=== PATIENT | female | born 1935 | race Caucasian/White ===

== ENCOUNTER → 2017-02-10 | Outpatient (CLI) | payer MEDICARE ==
--- NOTE | 2017-02-11 11:39 | MM ---
Reason for exam: screening (asymptomatic). Last mammogram was performed 1 year ago. History: Patient is postmenopausal and is nulliparous. Benign excisional biopsy of the left breast, August 21, 1998. Taking estrogen for 31 years. Physical Findings: A clinical breast exam by your physician is recommended on an annual basis and results should be correlated with mammographic findings. MG 3D Screening Mammo W/Cad Bilateral CC and MLO view(s) were taken. Prior study comparison: February 05, 2016, left breast MG 3d work up w/cad LT. February 01, 2016, bilateral MG 3d screening mammo w/cad. The breast tissue is heterogeneously dense. This may lower the sensitivity of mammography. Finding #1: Stable architectural distortion in the anterior position of the left breast consistent with known excisional biopsy. Finding #2: There are typically benign round calcifications in both breasts. There is no discrete abnormality. ASSESSMENT: Benign, BI-RAD 2 RECOMMENDATION: Routine screening mammogram of both breasts in 1 year.
== END | disposition home or self-care (01) ==
LOC: RADMAMWWP 14:25
PROVIDERS: ATTEND Internal Medicine
DX: Z12.31 Encounter for screening mammogram for malignant neoplasm of breast (principal)
CPT/HCPCS: 77063; G0202

== ENCOUNTER → 2017-03-25 | Outpatient (CLI) | payer MEDICARE ==
--- NOTE | 2017-03-25 16:07 | CT ---
EXAMINATION TYPE: CT brain wo con DATE OF EXAM: 03/25/2017 HISTORY: Episode of visual disturbance in December 2015. History of TIAs. CT DLP: 989.50 mGycm. Automated Exposure Control for Dose Reduction was Utilized. TECHNIQUE: CT scan of the head is performed without contrast. COMPARISON: CT brain May 04, 2014. FINDINGS: There is no acute intracranial hemorrhage or midline shift identified. There is diffuse v entricular and sulcal prominence consistent with diffuse age-related cerebral atrophy. There is low- attenuation in the periventricular white matter consistent with chronic small vessel ischemic change. The globes are intact and the visualized sinuses are clear. Hyperostosis frontalis is present. IMPRESSION: No acute intracranial hemorrhage or midline shift. There is mild diffuse age-related ce rebral atrophy and chronic small vessel ischemic change noted. No significant change from prior.
--- NOTE | 2017-03-25 17:00 | ECHOF ---
Referral Reason:G45.8 Transient cerebral ischemic attack MEASUREMENTS -------- HEIGHT: 162.6 cm WEIGHT: 71.7 kg BP: IVSd: 1.1 cm (0.6 - 1.1) LVIDd: 3.6 cm (3.9 - 5.3) LVPWd: 1.1 cm (0.6 - 1.1) IVSs: 1.2 cm LVIDs: 3.0 cm LVPWs: 1.2 cm LAESV Index (A-L): 26.85 ml/m Ao Diam: 2.7 cm (2.0 - 3.7) AV Cusp: 1.6 cm (1.5 - 2.6) LA Diam: 3.7 cm (2.7 - 3.8) EPSS: 0.3 cm MV E Can: 0.68 m/s MV DecT: 312 ms MV A Can: 0.62 m/s MV E/A Ratio: 1.10 AR PHT: 573 ms RAP: 5.00 mmHg RVSP: 23.78 mmHg MV EF SLOPE: 74.23 mm/s (70 - 150) MV EXCURSION: 1.92 cm (> 18.000) FINDINGS -------- Sinus rhythm. This was a technically adequate study. The left ventricular size is normal. There is mild concentric left ventricular hypertrophy. Overa ll left ventricular systolic function is normal with, an EF between 55 - 60 %. The right ventricle is normal in size and function. Normal LA size by volume 22+/-6 ml/m2. The right atrium is normal in size. There is mild aortic valve sclerosis. There is kaie-uq-dfthibvk aortic regurgitation. There is no evidence of aortic stenosis. The mitral valve leaflets are mildly thickened. There is trace to mild mitral regurgitation. Trace tricuspid regurgitation present. Right ventricular systolic pressure is normal at < 35 mmHg. There is no evidence of pulmonary hypertension. The pulmonic valve was not well visualized. The aortic root size is normal. Normal inferior vena cava with normal inspiratory collapse consistent with estimated right atrial pre ssure of 5 mmHg. The pericardium is normal. There is no pericardial effusion. CONCLUSIONS -------- 1. Sinus rhythm. 2. This was a technically adequate study. 3. The left ventricular size is normal. 4. There is mild concentric left ventricular hypertrophy. 5. Overall left ventricular systolic function is normal with, an EF between 55 - 60 %. 6. Normal LA size by volume 22+/-6 ml/m2. 7. There is mild aortic valve sclerosis. 8. There is wlve-xw-ksfumiyp aortic regurgitation. 9. The mitral valve leaflets are mildly thickened. 10. There is trace to mild mitral regurgitation. 11. Trace tricuspid regurgitation present. 12. Right ventricular systolic pressure is normal at < 35 mmHg. 13. There is no evidence of pulmonary hypertension. 14. The pulmonic valve was not well visualized. 15. The aortic root size is normal. 16. There is no pericardial effusion. PLAN COORDINATOR: Mio Avendano RDCS
--- NOTE | 2017-03-25 17:05 | US ---
EXAMINATION TYPE: US carotid duplex BILAT DATE OF EXAM: 03/25/2017 COMPARISON: NONE CLINICAL HISTORY: G45.8 Transient cerebral ischemic attack. EXAM MEASUREMENTS: RIGHT: Peak Systolic Velocity (PSV) cm/sec ----- Right CCA: 58.6 ----- Right ICA: 68.8 ----- Right ECA: 84.1 ICA/CCA ratio: 1.2 RIGHT: End Diastole cm/sec ----- Right CCA: 13.0 ----- Right ICA: 18.2 ----- Right ECA: 0.0 LEFT: Peak Systolic Velocity (PSV) cm/sec ----- Left CCA: 73.5 ----- Left ICA: 63.8 ----- Left ECA: 121.9 ICA/CCA ratio: 0.9 LEFT: End Diastole cm/sec ----- Left CCA: 11.8 ----- Left ICA: 14.0 ----- Left ECA: 0.0 VERTEBRALS (direction of flow): Right Vertebral: Antegrade Left Vertebral: Antegrade Rhythm: Normal Grayscale images show no significant plaque at carotid bulb level bilaterally. Visualized portion of both internal carotid artery shows no significant elevated velocities. IMPRESSION: No hemodynamically significant stenosis is seen in either internal carotid artery.
== END | disposition home or self-care (01) ==
LOC: RADECHMAIN 15:02
PROVIDERS: ATTEND Internal Medicine
DX: G31.1 Senile degeneration of brain, not elsewhere classified (principal); I67.82 Cerebral ischemia; I51.7 Cardiomegaly; I35.8 Other nonrheumatic aortic valve disorders; I35.1 Nonrheumatic aortic (valve) insufficiency
CPT/HCPCS: 70450; 93306; 93880

== ENCOUNTER → 2023-12-10 | Outpatient (CLI) | payer MEDICARE ==
--- NOTE | 2023-12-10 15:34 | CT ---
EXAMINATION TYPE: CT brain wo con DATE OF EXAM: 12/10/2023 COMPARISON: none HISTORY: f/u hematoma CT DLP: 1064.[address] of the brain was performed. The ventricles, basal cisterns and sulci overlying the cerebral convexities demonstrate mild enlargem ent. There is no evidence for intracranial hemorrhage or sulcal effacement. There is decreased attenuation about the periventricular white matter and deep white matter of both c erebral hemispheres, compatible with chronic small vessel ischemia. Differential diagnosis does inclu de demyelination. No mass effects are seen.No midline shift. Osseous calvarium is intact. If symptoms persist consider MRI. IMPRESSION: 1. Age related atrophic and chronic small vessel ischemic change without acute intracranial process s een at this time. No hematoma identified at this time. [facility], , 12/10/2023 3:31 PM
== END | disposition home or self-care (01) ==
LOC: RADCTMAIN 14:46
PROVIDERS: ATTEND Neurological Surgery
DX: S06.5X0A Traumatic subdural hemorrhage without loss of consciousness, initial encounter
CPT/HCPCS: 70450

== ENCOUNTER → 2024-01-13 | Outpatient (CLI) | payer MEDICARE ==
--- NOTE | 2024-01-13 14:55 | BD ---
EXAMINATION TYPE: Axial Bone Density DATE OF EXAM: 01/13/2024 CLINICAL HISTORY: 88 years old Female. ICD-10 CODE: M81.0 AGE RELATED OSTEOPOROSIS , Z78.0 Height: 62.2 Weight: 146 FRAX RISK QUESTIONS: Family History (Parent hip fracture): yes Glucocorticoids (More than 3mos): flonase (Ex: prednisone, prednisolone, methylprednisolone, dexamethasone, and hydrocortisone). History of Fracture in Adulthood: yes Secondary Osteoporosis: yes 1. Type 1 Diabetes: Janumet, no insulin 3. Menopause before 45: yes, total at 44 RISK FACTORS HISTORY OF: hx of lt ankle fx with surgical repair, hx of nose and fx and brain bleed, 2023, lt wrist, 2022, cholesterol, diabetic, early menopause with hyst at 44 yrs old, height loss History of Wrist Fracture: lt wrist, 2022 MEDICATIONS: bp meds, vit d3, cholesterol meds, Janumet, Osteoporosis Medications: yes, fosamax, 10+ yrs EXAM MEASUREMENTS: Bone mineral densitometry was performed using the [employer] System. Bone mineral density as measured about the Lumbar spine is: ----- L1-L4(G/cm2): 1.455 T Score Values are as follows: ----- L1: 1.0 ----- L2: 2.4 ----- L3: 3.0 ----- L4: 2.5 ----- L1-L4: 2.3 Z Score Values are as follows: ----- L1: 2.9 ----- L2: 4.3 ----- L3: 5.0 ----- L4: 4.4 ----- L1-L4: 4.2 Bone mineral density is her first bone density study at [facility]. Bone mineral density about the R hip (g/cm2): 0.685 Bone mineral density about the L hip (g/cm2): 0.813 T Score values are as follows: -----R Neck: -2.4 -----L Neck: -1.0 -----R Total: -2.6 -----L Total: -1.5 Z Score values are as follows: -----R Neck: 0.1 -----L Neck: 1.4 -----R Total: -0.2 -----L Total: 0.8 Bone mineral density is her first at [facility]. FRAX%s: The graph provided illustrates a 42.0% chance for a major osteoporotic fx and a 29.3% chance for the hips probability for fx in 10 years time. IMPRESSION: Osteoporosis (T Score less than -2.5). There is increased fracture risk and therapy is usually indicated based on age. Re-Screen 1-2 years. NOTE: T-SCORE=SD OF THE YOUNG ADULT MEAN. [facility], , 01/13/2024 2:53 PM
--- NOTE | 2024-01-14 12:16 | MM ---
Reason for Exam: Screening (asymptomatic). Last screening mammogram was performed 12 month(s) ago. Patient History: Menarche at age 16. Patient has no children. Left ovary removed at age 44. Right ovary removed at age 44. Hysterectomy at age 44. Postmenopausal. Patient used Estrogen for 31 years. 08/21/1998, Benign Excisional Biopsy on the left side. Prior Study Comparison: 02/01/2016 Bilateral Screening Mammogram, [facility]. 02/05/2016 Left Diagnostic Mammogram, [facility]. 02/10/2017 Bilateral Screening Mammogram, [facility]. 12/15/2022 Bilateral Screening Mammogram, [facility]. Tissue Density: The breasts are heterogeneously dense, which may obscure small masses. Findings: Analyzed By CAD. Right breast: There is no suspicious group of microcalcifications or new suspicious mass. Left breast: Stable architectural distortion in the left breast anterior depth slightly upper outer aspect There is no suspicious group of microcalcifications or new suspicious mass. Overall Assessment: Benign, BI-RAD 2 Management: Screening Mammogram of both breasts in [address] [facility] will attempt to contact patient to return for supplemental views and ultrasound if indicated. Patient should continue monthly self-breast exams. A clinical breast exam by your physician is recommended on an annual basis. This exam should not preclude additional follow-up of suspicious palpable abnormalities. Note on Oxana scores and lifetime risk: 1. A Oxana score greater than 3% is considered moderate risk. If this is the case, consider specialist referral to assess eligibility for a risk reducing agent. 2. If overall lifetime risk for the development of breast cancer is 20% or higher, the patient may qualify for future screening with alternating mammogram and breast MRI. [facility], , 01/14/2024 12:13 PM. Electronically signed and approved by: Jakob Riley DO
== END | disposition home or self-care (01) ==
LOC: RADMAMWWP 11:47
PROVIDERS: ATTEND Internal Medicine Geriatric Medicine
DX: Z12.31 Encounter for screening mammogram for malignant neoplasm of breast (principal); M81.0 Age-related osteoporosis without current pathological fracture; E10.9 Type 1 diabetes mellitus without complications; Z78.0 Asymptomatic menopausal state; Z90.722 Acquired absence of ovaries, bilateral; Z86.73 Personal history of transient ischemic attack (TIA), and cerebral infarction without residual deficits
CPT/HCPCS: 77063; 77067; 77080

== ENCOUNTER 2024-03-22 18:27 | Emergency (ER) | payer MEDICARE ==
[2024-03-22 18:38] VITALS: RESP 18; TEMP 98.5
--- NOTE | 2024-03-22 19:22 | CT ---
EXAMINATION TYPE: CT brain leoraine wo con DATE OF EXAM: 03/22/2024 6:58 PM COMPARISON: None. CLINICAL INDICATION: Female, 89 years old with history of Trauma, fall, on thinners, large constusion above right eye. TECHNIQUE: CT of the brain is performed utilizing 3 mm thick sections through the posterior fossa and 3 mm thick sections through the remaining calvarium. Study is performed within 24 hours of arrival to the hospital. Contrast used: mL of , (none if empty) CT DLP: 1409.5 mGycm, Automated exposure control for dose reduction was used. FINDINGS: No abnormal hyperdensity is present to suggest an acute intracranial hemorrhage. No mass lesion is evident. No acute infarcts are evident. Ventricles and sulci are appropriate for the patient age. Hyperostosis frontalis internus, normal variant, is present. Soft tissue swelling over the right frontal region. No underlying fracture is evident Paranasal sinuses and mastoid air cells within the iivat-yk-mrpe are clear. IMPRESSIONS: 1. No acute intracranial process. Follow-up MRI can be performed as clinically indicated. 2. Right frontal superficial soft tissue swelling. CT cervical spine. COMPARISON: None TECHNIQUE: CT of the cervical spine is performed in the axial plane at 2 mm thick sections. Reconstr ucted images in the coronal, and sagittal plane are reviewed on the computer. FINDINGS: No acute fractures are evident. Vertebral body alignment is normal. Disc heights are preserved. Vertebral body heights are preserved. No spinal canal stenosis is evident. No neural foraminal stenosis is evident. There is some hypodensity with ill-defined margins in the left lobe thyroid. Consider follow-up with ultrasound when the patient is stable. IMPRESSION: 1. No acute osseous abnormality cervical spine. 2. Hypodensity within the left lobe thyroid. Follow-up ultrasound recommended. [facility], Workstation: [facility], 03/22/2024 7:19 PM
--- NOTE | 2024-03-22 20:07 | ED ---
General Adult HPI - General Chief complaint: Fall Stated complaint: fall Time Seen by Provider: 03/22/24 18:35 Source: patient, EMS, RN notes reviewed, old records reviewed Mode of arrival: EMS - History of Present Illness Initial comments: This is an 89-year-old female fell and hit the front of her head. Patient is on Plavix. Patient did not lose conscious. Patient denies neck pain. Patient denies numbness weakness. Patient is complaining of a headache however. Also complains of left knee pain. Patient has full range of motion of left knee she states that she can stand on her. - Related Data Home Medications Medication Instructions Recorded Confirmed Aspirin 4 tab PO DAILY 05/04/14 05/04/14 Brimonidine Tartrate [Alphagan P 1 drop BOTH EYES BID 05/04/14 05/04/14 0.15% Ophth Soln] Estrogens, Conjugated [Premarin] 0.625 mg 05/04/14 05/04/14 LORazepam [Ativan] 0.5 mg PO HS 05/04/14 05/04/14 Metoprolol Succinate (ER) [Toprol 25 mg PO DAILY 05/04/14 05/04/14 XL] Omeprazole [PriLOSEC] 20 mg PO DAILY 05/04/14 05/04/14 sitaGLIPtin PHOSPHATE [Januvia] 100 mg PO DAILY 05/04/14 05/04/14 Allergies Allergy/AdvReac Type Severity Reaction Status Date / Time amoxicillin AdvReac Rash/Hives Verified 05/04/14 12:22 cefuroxime AdvReac Rash/Hives Verified 03/22/24 18:42 cephalexin monohydrate AdvReac Swelling Verified 05/04/14 12:22 [From Keflex] ciprofloxacin [From Cipro] AdvReac Unknown Verified 05/04/14 12:22 ciprofloxacin HCl AdvReac Unknown Verified 05/04/14 12:22 [From Cipro] clindamycin HCl AdvReac Diarrhea Verified 05/04/14 12:22 [From Cleocin] clindamycin palmitate HCl AdvReac Diarrhea Verified 05/04/14 12:22 [From Cleocin] clindamycin phosphate AdvReac Diarrhea Verified 05/04/14 12:22 [From Cleocin] clotrimazole AdvReac Itching Verified 03/22/24 18:42 doxycycline AdvReac Itching Verified 03/22/24 18:42 levofloxacin [From Levaquin] AdvReac Unknown Verified 05/04/14 12:22 meloxicam [From Mobic] AdvReac Nausea Verified 03/22/24 18:42 methylprednisolone AdvReac Unknown Verified 03/22/24 18:42 [From Medrol] metronidazole AdvReac Nausea Verified 03/22/24 18:42 sulfamethoxazole AdvReac Nausea Verified 05/04/14 12:22 [From Bactrim] trimethoprim [From Bactrim] AdvReac Nausea Verified 05/04/14 12:22 Review of Systems ROS Statement: Those systems with pertinent positive or pertinent negative responses have been documented in the HPI. ROS Other: All systems not noted in ROS Statement are negative. Past Medical History Past Medical History: Diabetes Mellitus, Hypertension Additional Past Medical History / Comment(s): GERD, TIA. Glaucoma, brain bleed History of Any Multi-Drug Resistant Organisms: None Reported Past Surgical History: Appendectomy, Cholecystectomy, Hysterectomy, Orthopedic Surgery Additional Past Surgical History / Comment(s): Breast lumpectomy(left), Glaucoma, Cystoscope Past Psychological History: Anxiety, Depression Smoking Status: Never smoker Past Alcohol Use History: Daily, Occasional Past Drug Use History: None Reported General Exam - General Exam Comments Initial Comments: GENERAL: Patient is well-developed and well-nourished. Patient is nontoxic and well- hydrated and is in mild distress. Normal on the forehead slight abrasion to her bridge of her nose no tenderness ENT: Neck is soft and supple. No significant lymphadenopathy is noted. Oropharynx is clear. Moist mucous membranes. Neck has full range of motion without eliciting any pain. EYES: The sclera were anicteric and conjunctiva were pink and moist. Extraocular movements were intact and pupils were equal round and reactive to light. Eyelids were unremarkable. PULMONARY: Unlabored respirations. Good breath sounds bilaterally. No audible rales rhonchi or wheezing was noted. CARDIOVASCULAR: There is a regular rate and rhythm without any murmurs gallops or rubs. ABDOMEN: Soft and nontender with normal bowel sounds. SKIN: Skin is clear with no lesions or rashes and otherwise unremarkable. NEUROLOGIC: Patient is alert and oriented x3. Cranial nerves II through XII are grossly intact. Motor and sensory are also intact. Normal speech, volume and content. Symmetrical smile. MUSCULOSKELETAL: Normal extremities with adequate strength and full range of motion. Patient has a contusion to the left knee patient has full range of motion of that knee LYMPHATICS: No significant lymphadenopathy is noted PSYCHIATRIC: Normal psychiatric evaluation. Course Vital Signs 03/22/24 18:30 Temperature 98.5 F Pulse Rate 87 Respiratory 18 Rate Blood Pressure 158/87 O2 Sat by Pulse 97 Oximetry Medical Decision Making - Medical Decision Making Was pt. sent in by a medical professional or institution ([facility]OUIE Orosco, [facility], urgent care, hospital, or senior living...) When possible be specific @ -No Did you speak to anyone other than the patient for history (EMS, parent, family, police, friend...)? What history was obtained from this source @ -No Did you review nursing and triage notes (agree or disagree)? Why? @ -I reviewed and agree with nursing and triage notes Were old charts reviewed (outside hosp., previous admission, EMS record, old EKG, old radiological studies, urgent care reports/EKG's, senior living records)? Report findings @ -No old charts were reviewed Differential Diagnosis? @ -Intracranial hemorrhage, cervical spine fracture, fractured fibula fracture tibia this is not all-inclusive EKG interpreted by me (3pts min.). @ -As above X-rays interpreted by me (1pt min.). @ -X-ray of the knee shows no acute abnormality CT interpreted by me (1pt min.). @ -CT of the brain and C-spine showed no acute abnormality U/S interpreted by me (1pt. min.). @ -None done What testing was considered but not performed or refused? (CT, X-rays, U/S, labs)? Why? @ -None What meds were considered but not given or refused? Why? @ -None Did you discuss the management of the patient with other professionals (professionals i.e. LOUIE Orosco, [facility], lab, RT, psych nurse, social media community manager, brim greaser operator, teacher, veterinary medical officer, pillowcase folder)? Give summary @ -No Was smoking cessation discussed for >3mins.? @ -No Was critical care preformed (if so, how long)? @ -No Were there social determinants of health that impacted care today? How? (Homelessness, low income, unemployed, alcoholism, drug addiction, transportation, low edu. Level, literacy, decrease access to med. care, custodial, rehab)? @ -No Was there de-escalation of care discussed even if they declined (Discuss DNR or withdrawal of care, Hospice)? DNR status @ -No What co-morbidities impacted this encounter? (DM, HTN, Smoking, COPD, CAD, Cancer, CVA, ARF, Chemo, Hep., AIDS, mental health diagnosis, sleep apnea, morbid obesity)? @ -None Was patient admitted / discharged? Hospital course, mention meds given and route, prescriptions, significant lab abnormalities, going to OR and other pertinent info. @ -X-rays and CAT scans were normal. Patient will be discharged home. Patient will be told return if there are any new or worsening symptoms Undiagnosed new problem with uncertain prognosis? @ -No Drug Therapy requiring intensive monitoring for toxicity (Heparin, Nitro, Insulin, Cardizem)? @ -No Were any procedures done? @ -No Diagnosis/symptom? @ -Head injury Acute, or Chronic, or Acute on Chronic? @ -Acute Uncomplicated (without systemic symptoms) or Complicated (systemic symptoms)? @ -Acute complicated Side effects of treatment? @ -No Exacerbation, Progression, or Severe Exacerbation? @ -No Poses a threat to life or bodily function? How? (Chest pain, [place], NV, pneumonia, PE, COPD, DKA, ARF, appy, cholecystitis, CVA, Diverticulitis, Homicidal, Suicidal, threat to staff... and all critical care pts) @ -No Diagnosis/symptom? @ -Contusion knee Acute, or Chronic, or Acute on Chronic? @ -Acute Uncomplicated (without systemic symptoms) or Complicated (systemic symptoms)? @ -Uncomplicated Side effects of treatment? @ -None Exacerbation, Progression, or Severe Exacerbation] @ -No Poses a threat to life or bodily function? @ -No Disposition Clinical Impression: Fall, Head injury Disposition: HOME SELF-CARE Condition: Good Instructions (If sedation given, give patient instructions): Fall Prevention for Older Adults (ED), Head Injury (ED) Is patient prescribed a controlled substance at d/c from ED?: No Referrals: Maninder Rivas MD [Primary Care Provider] - 1-2 days Time of Disposition: 20:33
--- NOTE | 2024-03-22 21:06 | XR ---
EXAMINATION TYPE: XR knee complete LT DATE OF EXAM: 03/22/2024 8:11 PM COMPARISON: None. CLINICAL INDICATION: Female, 89 years old with history of Fall, pain TECHNIQUE: 3 view(s) obtained. FINDINGS: There is loss of joint space in the lateral compartment left knee. Calcification is within the medial meniscus. Patellofemoral degenerative changes are present. No joint effusion is evident. IMPRESSION: 1. Moderately advanced degenerative changes greater in the lateral compartment patellofemoral. [facility], Workstation: [facility], 03/22/2024 9:04 PM
[2024-03-22 21:11] VITALS: BP 138/74; PULSE 63
== END 2024-03-22 21:11 | disposition home or self-care (01) ==
LOC: EC 18:27
DX: S09.90XA Unspecified injury of head, initial encounter (principal); S80.02XA Contusion of left knee, initial encounter; W18.30XA Fall on same level, unspecified, initial encounter; Z88.0 Allergy status to penicillin; Z88.1 Allergy status to other antibiotic agents; Z88.2 Allergy status to sulfonamides; Z88.8 Allergy status to other drugs, medicaments and biological substances
CPT/HCPCS: 70450; 72125; 99284

== ENCOUNTER 2024-03-23 19:57 | Inpatient (IN) | payer MEDICARE ==
--- NOTE | 2024-03-23 20:09 | ED ---
Fall HPI - General Chief Complaint: Fall Stated Complaint: Fall Time Seen by Provider: 03/23/24 19:59 Source: patient, EMS, RN notes reviewed Mode of arrival: EMS Limitations: physical limitation - History of Present Illness Initial Comments: 89-year-old female presents emergency room with complaint of a fall. Patient states she was going down her steps using the railing when her finger caught on a screw she states that she pulled away and this caused her to fall. Patient fell onto her right knee complains of pain, swelling unable to ambulate patient was seen here yesterday after a fall also had CT of her brain, neck without any acute intracranial hemorrhage. Patient states that she only has a knee injury from today. Patient states has been icing it throughout the day with no improvement of her symptoms. - Related Data Home Medications Medication Instructions Recorded Confirmed Aspirin 4 tab PO DAILY 05/04/14 05/04/14 Brimonidine Tartrate [Alphagan P 1 drop BOTH EYES BID 05/04/14 05/04/14 0.15% Ophth Soln] Estrogens, Conjugated [Premarin] 0.625 mg 05/04/14 05/04/14 LORazepam [Ativan] 0.5 mg PO HS 05/04/14 05/04/14 Metoprolol Succinate (ER) [Toprol 25 mg PO DAILY 05/04/14 05/04/14 XL] Omeprazole [PriLOSEC] 20 mg PO DAILY 05/04/14 05/04/14 sitaGLIPtin PHOSPHATE [Januvia] 100 mg PO DAILY 05/04/14 05/04/14 Allergies Allergy/AdvReac Type Severity Reaction Status Date / Time amoxicillin AdvReac Rash/Hives Verified 03/23/24 20:04 cefuroxime AdvReac Rash/Hives Verified 03/23/24 20:04 cephalexin monohydrate AdvReac Swelling Verified 03/23/24 20:04 [From Keflex] ciprofloxacin [From Cipro] AdvReac Unknown Verified 03/23/24 20:04 ciprofloxacin HCl AdvReac Unknown Verified 03/23/24 20:04 [From Cipro] clindamycin HCl AdvReac Diarrhea Verified 03/23/24 20:04 [From Cleocin] clindamycin palmitate HCl AdvReac Diarrhea Verified 03/23/24 20:04 [From Cleocin] clindamycin phosphate AdvReac Diarrhea Verified 03/23/24 20:04 [From Cleocin] clotrimazole AdvReac Itching Verified 03/23/24 20:04 doxycycline AdvReac Itching Verified 03/23/24 20:04 levofloxacin [From Levaquin] AdvReac Unknown Verified 03/23/24 20:04 meloxicam [From Mobic] AdvReac Nausea Verified 03/23/24 20:04 methylprednisolone AdvReac Unknown Verified 03/23/24 20:04 [From Medrol] metronidazole AdvReac Nausea Verified 03/23/24 20:04 sulfamethoxazole AdvReac Nausea Verified 03/23/24 20:04 [From Bactrim] trimethoprim [From Bactrim] AdvReac Nausea Verified 03/23/24 20:04 Review of Systems ROS Statement: Those systems with pertinent positive or pertinent negative responses have been documented in the HPI. ROS Other: All systems not noted in ROS Statement are negative. Past Medical History Past Medical History: Diabetes Mellitus, Hypertension Additional Past Medical History / Comment(s): GERD, TIA. Glaucoma, brain bleed History of Any Multi-Drug Resistant Organisms: None Reported Past Surgical History: Appendectomy, Cholecystectomy, Hysterectomy, Orthopedic Surgery Additional Past Surgical History / Comment(s): Breast lumpectomy(left), Glaucoma, Cystoscope Past Psychological History: Anxiety, Depression Smoking Status: Never smoker Past Alcohol Use History: Daily, Occasional Past Drug Use History: None Reported General Exam Limitations: no limitations General appearance: alert, in no apparent distress Head exam: Present: atraumatic, normocephalic. Absent: normal inspection (Faci al ecchymosis noted) Eye exam: Present: normal appearance, PERRL, EOMI, periorbital swelling, periorbital tenderness (Right). Absent: scleral icterus, conjunctival injection ENT exam: Present: normal exam, normal oropharynx, mucous membranes moist Neck exam: Present: normal inspection, full ROM. Absent: tenderness, mening ismus, lymphadenopathy Respiratory exam: Present: normal lung sounds bilaterally. Absent: respiratory distress, wheezes, rales, rhonchi, stridor Cardiovascular Exam: Present: regular rate, normal rhythm, normal heart sounds. Absent: systolic murmur, diastolic murmur, rubs, gallop, clicks Extremities exam: Present: other (Right knee there is diffuse ecchymosis, swelling noted there is diffuse tenderness neurovascular intact pain with range of motion limited range of motion) Neurological exam: Present: alert, oriented X3 Course Vital Signs 03/23/24 19:58 Temperature 97.8 F Pulse Rate 86 Respiratory 18 Rate Blood Pressure 139/63 O2 Sat by Pulse 97 Oximetry Disposition Clinical Impression: Multiple falls, Unable to ambulate, Weakness Disposition: ADMITTED IP TO THIS HOSP Condition: Fair Referrals: Maninder Rivas MD [Primary Care Provider] - 1-2 days Time of Disposition: 21:14
--- NOTE | 2024-03-23 20:31 | XR ---
EXAMINATION TYPE: XR knee complete RT DATE OF EXAM: 03/23/2024 8:25 PM COMPARISON: None. CLINICAL INDICATION: Female, 89 years old with history of fall, pain, pain TECHNIQUE: Three views of the right knee are obtained. FINDINGS: There is no acute fracture/dislocation evident in right knee. Osseous structures are demin eralized. Moderate to severe tricompartment degenerative change and spurring is seen. Meniscal calcif ications are present raising concern for underlying chondrocalcinosis. Suspect moderate to large-size d suprapatellar joint effusion. IMPRESSION: There is no acute fracture or dislocation in the right knee. [facility], , 03/23/2024 8:28 PM
--- NOTE | 2024-03-23 21:05 | CT ---
EXAMINATION TYPE: CT knee RT wo con DATE OF EXAM: 03/23/2024 COMPARISON: Same day right knee x-ray. CLINICAL INDICATION: Female, 89 years old with history of trauma, unable to ambulate; PHH, Fall, pain in right knee. CT DLP: 101.4 mGycm Automated exposure control for dose reduction was used. FINDINGS: No acute displaced fracture in the right knee. Moderate to severe tricompartment joint space loss and spurring is redemonstrated. Meniscal calcifications consistent with underlying chondrocalcinosis is redemonstrated. There is confirmation of large size suprapatellar joint effusion. There is thickening of the patellar tendon with curvilinear calcification along the deep inferior aspect. There is moder ate to severe superficial infrapatellar subcutaneous edema. There is moderate size popliteal cyst sag ittal image 26. Subcutaneous edema in Hoffa's fat pad raises concern for impingement syndrome, correl ate clinically. IMPRESSION: NO ACUTE FRACTURE OR DISLOCATION IN THE RIGHT KNEE. [facility], , 03/23/2024 9:02 PM
[2024-03-23] MEDS ORDERED: NALOXONE 0.4 MG/ML 1 ML VIAL IV PRN (21:14)
[2024-03-23 21:52] LABS: Basophils % (A) 0 %; Eosinophils # (A) 0.1 k/uL (0-0.7); Eosinophils % (A) 1 %; HCT 39.5 % (34.0-46.0); Lymphocytes # (A) 0.8 k/uL (1.0-4.8); Lymphocytes % (A) 6 %; MCH 29.3 pg (25.0-35.0); MCHC 33.1 g/dL (31.0-37.0); MCV 88.8 fL (80.0-100.0); Mean Platelet Volume 8.1; Monocytes # (A) 0.7 k/uL (0-1.0); Monocytes % (A) 5 %; Neutrophils # (A) 12.2 k/uL (1.3-7.7); Neutrophils % (A) 88 %; Platelet Count 210 k/uL (150-450); RBC 4.45 m/uL (3.80-5.40); RDW 13.4 % (11.5-15.5); WBC 13.9 k/uL (3.8-10.6)
[2024-03-23 22:01] LABS: ALT 24 U/L (4-34); AST 37 U/L (14-36); African American GFR (CKD) 63 (>60 ml/min/1.73 sqM); Albumin 4.4 g/dL (3.5-5.0); Alkaline Phosphatase 49 U/L (38-126); Anion Gap 10 mmol/L; Blood Urea Nitrogen 20 mg/dL (7-17); Carbon Dioxide 25 mmol/L (22-30); Chloride 100 mmol/L (98-107); Glucose 114 mg/dL (74-99); Magnesium 1.7 mg/dL (1.6-2.3); Non-African American GFR(CKD) 55 (>60 ml/min/1.73 sqM); Potassium 4.4 mmol/L (3.5-5.1); Sodium 135 mmol/L (137-145); Total Bilirubin 0.8 mg/dL (0.2-1.3); Total Protein 7.1 g/dL (6.3-8.2)
[2024-03-23 23:06] LABS: Glucose,Whole Blood 131 mg/dL (70-110)
[2024-03-24] MEDS: ACETAMINOPHEN TAB 325 MG TAB PO PRN (00:18)
[2024-03-24] MEDS: HYDROcodone/APAP 5-325MG 1 EACH TAB PO PRN (04:14)
[2024-03-24 06:01] LABS: Basophils % (A) 0 %; Eosinophils # (A) 0.2 k/uL (0-0.7); Eosinophils % (A) 2 %; HCT 36.3 % (34.0-46.0); HGB 11.7 gm/dL (11.4-16.0); Lymphocytes # (A) 0.8 k/uL (1.0-4.8); Lymphocytes % (A) 8 %; MCH 29.2 pg (25.0-35.0); MCHC 32.3 g/dL (31.0-37.0); MCV 90.3 fL (80.0-100.0); Mean Platelet Volume 8.3; Monocytes # (A) 0.6 k/uL (0-1.0); Monocytes % (A) 6 %; Neutrophils # (A) 7.7 k/uL (1.3-7.7); Neutrophils % (A) 82 %; Platelet Count 164 k/uL (150-450); RBC 4.02 m/uL (3.80-5.40); RDW 13.4 % (11.5-15.5); WBC 9.4 k/uL (3.8-10.6)
[2024-03-24 06:21] LABS: African American GFR (CKD) 61 (>60 ml/min/1.73 sqM); Anion Gap 8 mmol/L; Blood Urea Nitrogen 25 mg/dL (7-17); Calcium 9.5 mg/dL (8.4-10.2); Carbon Dioxide 25 mmol/L (22-30); Chloride 103 mmol/L (98-107); Glucose 119 mg/dL (74-99); Non-African American GFR(CKD) 53 (>60 ml/min/1.73 sqM); Potassium 4.3 mmol/L (3.5-5.1); Sodium 136 mmol/L (137-145)
[2024-03-24] MEDS ORDERED: DEXTROSE 50% SYRINGE 50 ML IVP PRN ×2 (06:28)
[2024-03-24 06:29] LABS: Glucose,Whole Blood 127 mg/dL (70-110)
[2024-03-24] MEDS: INSULIN ASPART (NovoLOG) 100 UNIT/ML VIAL SQ SCH (07:32)
[2024-03-24] MEDS: METOPROLOL SUCCINATE (ER) 25 MG TAB.ER.24H PO SCH (11:15)
[2024-03-24] MEDS: CHOLECALCIFEROL 25 MCG (1000 IU) TABLET PO SCH (11:15)
[2024-03-24] MEDS: PANTOPRAZOLE 40 MG TABLET PO SCH (11:16)
[2024-03-24] MEDS: CITALOPRAM HYDROBROMIDE 20 MG TAB PO SCH (11:16)
[2024-03-24] MEDS: metFORMIN 500 MG TAB PO SCH (11:16)
[2024-03-24] MEDS: LINAGLIPTIN 5 MG TABLET PO SCH (11:16)
[2024-03-24] MEDS: ATORVASTATIN 20 MG TAB PO SCH (11:16)
[2024-03-24 11:26] LABS: Glucose,Whole Blood 139 mg/dL (70-110)
--- NOTE | 2024-03-24 13:09 | P.HPIM ---
History of Present Illness H&P Date: 03/24/24 This is an 89-year-old female with medical history significant for diabetes mellitus, hypertension, acid reflux, TIA with no residuals back in 2013. Patient also had a brain bleed in 2023 secondary to a fall where she hit her head. Patient is maintained on Plavix daily. She comes into the hospital she had a fall on Thursday where she was walking up steps misstepped fell hit her head into the wall she came to the ER to be evaluated she had a had cervical spine CT that showed no acute intracranial process but she did have some right frontal superficial soft tissue swelling and there is some obvious bruising noted on her forehead and she has bilateral black eyes. Patient was discharged home from the ER however she comes back with a second fall on Thursday where she fell going down steps and landed on her knees. Since then she has had significant pain in her right knee with some obvious soft tissue swelling. Knee x-ray reveals no acute fracture or dislocation of the right knee however there is moderate to severe tricompartment degenerative change and spurring is seen. Patient had a follow-up CT of the right knee which again confirms a large sized suprapatellar joint effusion and patient is at this time unable to bear weight secondary to the pain. Orthopedics was consulted for further evaluation and possible aspiration we did hold her Plavix today. Will work reveals a white b lood cell count of 13.9, sodium 135, BUN of 20 creatinine 0.94 AST of 37. Hemodynamically she is stable. REVIEW OF SYSTEMS: CONSTITUTIONAL: No fever, no malaise, no fatigue. HEENT: No recent visual problems or hearing problems. Denied any sore throat. CARDIOVASCULAR: No chest pain, orthopnea, PND, no palpitations, no syncope. PULMONARY: No shortness of breath, no cough, no hemoptysis. GASTROINTESTINAL: No diarrhea, no nausea, no vomiting, no abdominal pain. NEUROLOGICAL: No headaches, no weakness, no numbness. HEMATOLOGICAL: Denies any bleeding or petechiae. GENITOURINARY: Denies any burning micturition, frequency, or urgency. MUSCULOSKELETAL/RHEUMATOLOGICAL: Denies any joint pain, swelling, or any muscle pain. ENDOCRINE: Denies any polyuria or polydipsia. The rest of the 14-point review of systems is negative. PHYSICAL EXAMINATION: GENERAL: The patient is alert and oriented x3, not in any acute distress. Well developed, well nourished. HEENT: Pupils are round and equally reacting to light. EOMI. No scleral icterus. No conjunctival pallor. Normocephalic, atraumatic. No pharyngeal erythema. No thyromegaly. CARDIOVASCULAR: S1 and S2 present. No murmurs, rubs, or gallops. PULMONARY: Chest is clear to auscultation, no wheezing or crackles. ABDOMEN: Soft, nontender, nondistended, normoactive bowel sounds. No palpable organomegaly. MUSCULOSKELETAL: No joint swelling or deformity. EXTREMITIES: No cyanosis, clubbing, or pedal edema. NEUROLOGICAL: Gross neurological examination did not reveal any focal deficits. SKIN: No rashes. Patient has soft tissue swelling over the right forehead and bilateral black eyes, Bruising to the left great toe Assessment and Plan Traumatic fall with soft tissue head trauma on the right forehead Right knee pain with large joint effusion post fall Bruising and pain to the left great toe post fall Diabetes Mellitus type 2 Hypertension currently normotensive holding lisinopril Gastroesophageal reflux disease TIA in 2013 with no residual Hx of brain bleed in 2023 post fall Anxiety/Depression GI Prophylaxis DVT prophylaxis No Code Plan Pending orthopedic evaluation Pending xray of the left foot and great toe Pending PT/OT evaluation Hold lisinopril Hold plavix for now pending Orthopedic recommendations Resume all other appropriate home medications Continue accuchecks ACHS The impression and plan of care has been dictated by Ernestina Avilez Nurse Practitioner as directed. Dr. Chris MD I have performed a history and physical examination and medical decision making of this patient, discussed the same with the dictator, and agree with the dictators assessment and plan as written, documented as a scribe. Based on total visit time, I have performed more than 50% of this visit. Past Medical History Past Medical History: Diabetes Mellitus, Hypertension Additional Past Medical History / Comment(s): GERD, TIA 2013. Brain bleed 2023 History of Any Multi-Drug Resistant Organisms: None Reported Past Surgical History: Appendectomy, Cholecystectomy, Hysterectomy, Orthopedic Surgery Additional Past Surgical History / Comment(s): Breast lumpectomy(left), Cy stoscope, Left ankle pin and plate Past Psychological History: Anxiety, Depression Smoking Status: Never smoker Past Alcohol Use History: Occasional Past Drug Use History: None Reported Medications and Allergies Home Medications Medication Instructions Recorded Confirmed Type Metoprolol Succinate (ER) [Toprol 25 mg PO DAILY 05/04/14 03/24/24 History XL] Omeprazole [PriLOSEC] 20 mg PO DAILY 05/04/14 03/24/24 History Alendronate Sodium [Fosamax] 70 mg PO PERRIN 03/24/24 03/24/24 History Cholecalciferol [Vitamin D3 (25 50 mcg PO DAILY 03/24/24 03/24/24 History Mcg = 1000 Iu)] Citalopram Hydrobromide [CeleXA] 20 mg PO DAILY 03/24/24 03/24/24 History Clopidogrel [Plavix] 75 mg PO DAILY 03/24/24 03/24/24 History Dulaglutide [Trulicity] 0.75 mg SQ PERRIN 03/24/24 03/24/24 History Magnesium Oxide [Mag-Ox] 400 mg PO DAILY 03/24/24 03/24/24 History Rosuvastatin [Crestor] 10 mg PO DAILY 03/24/24 03/24/24 History calcium polycarbophiL [Fibercon] 625 mg PO DAILY 03/24/24 03/24/24 History lisinopriL 2.5 mg PO DAILY 03/24/24 03/24/24 History sitaGLIPtin PHOS/metFORMIN HCL 1 tab PO DAILY 03/24/24 03/24/24 History [Janumet 50-500 mg Tablet] Allergies Allergy/AdvReac Type Severity Reaction Status Date / Time cefuroxime Allergy Rash/Hives Verified 03/24/24 08:34 losartan [From Cozaar] Allergy Itching Verified 03/24/24 08:34 Penicillins Allergy Rash/Hives Verified 03/24/24 08:34 sulfamethoxazole Allergy Rash/Hives Verified 03/24/24 08:34 [From Bactrim] trimethoprim [From Bactrim] Allergy Rash/Hives Verified 03/24/24 08:34 amoxicillin AdvReac Rash/Hives Verified 03/24/24 08:34 cephalexin monohydrate AdvReac Swelling - Verified 03/24/24 08:34 [From Keflex] mouth/lips ciprofloxacin [From Cipro] AdvReac Joint Pain Verified 03/24/24 08:34 ciprofloxacin HCl AdvReac Joint Pain Verified 03/24/24 08:34 [From Cipro] clindamycin HCl AdvReac Diarrhea Verified 03/24/24 08:34 [From Cleocin] clindamycin palmitate HCl AdvReac Diarrhea Verified 03/24/24 08:34 [From Cleocin] clindamycin phosphate AdvReac Diarrhea Verified 03/24/24 08:34 [From Cleocin] clotrimazole AdvReac Itching Verified 03/24/24 08:34 doxycycline AdvReac Itching/Yeast/Gi Verified 03/24/24 08:34 Upset levofloxacin [From Levaquin] AdvReac joint pain Verified 03/24/24 08:34 meloxicam [From Mobic] AdvReac Nausea Verified 03/24/24 08:34 methylprednisolone AdvReac joint pain Verified 03/24/24 08:34 [From Medrol] metronidazole AdvReac Nausea Verified 03/24/24 08:34 Physical Exam Vitals: Vital Signs Temp Pulse Pulse Resp BP BP Pulse Ox 03/24/24 07:05 97.8 F 77 18 125/81 95 03/24/24 02:49 97.6 F 83 17 120/73 98 03/23/24 22:53 97.3 F L 84 18 127/71 94 L 03/23/24 22:23 97.3 F L 87 19 134/69 96 03/23/24 19:58 97.8 F 86 18 139/63 97 Intake and Output 03/23/24 03/24/24 03/24/24 22:59 06:59 14:59 Other: Voiding Method External Catheter # Voids 1 Weight 63.503 kg 63.503 kg Results CBC & Chem 7: 03/24/24 05:47 03/24/24 05:47 Labs: Abnormal Lab Results - Last 24 Hours (Table) 03/23/24 03/23/24 03/23/24 Range/Units 21:35 21:35 23:03 WBC 13.9 H (3.8-10.6) k/uL Neutrophils # 12.2 H (1.3-7.7) k/uL Lymphocytes # 0.8 L (1.0-4.8) k/uL Sodium 135 L (137-145) mmol/L BUN 20 H (7-17) mg/dL Glucose 114 H (74-99) mg/dL POC Glucose (mg/dL) 131 H (70-110) mg/dL AST 37 H (14-36) U/L 03/24/24 03/24/24 03/24/24 Range/Units 05:47 05:47 06:26 WBC (3.8-10.6) k/uL Neutrophils # (1.3-7.7) k/uL Lymphocytes # 0.8 L (1.0-4.8) k/uL Sodium 136 L (137-145) mmol/L BUN 25 H (7-17) mg/dL Glucose 119 H (74-99) mg/dL POC Glucose (mg/dL) 127 H (70-110) mg/dL AST (14-36) U/L Thrombosis Risk Factor Assmnt - Choose All That Apply Other Risk Factors: Yes Each Risk Factor Represents 3 Points: Age 75 years or older Other congenital or acquired thrombophilia - If yes, enter type in comment: No Thrombosis Risk Factor Assessment Total Risk Factor Score: 3 Thrombosis Risk Factor Assessment Level: Moderate Risk Assessment and Plan Time with Patient: Less than 30
--- NOTE | 2024-03-24 14:18 | XR ---
EXAMINATION TYPE: XR foot complete LT DATE OF EXAM: 03/24/2024 2:07 PM COMPARISON: None. CLINICAL INDICATION: Female, 89 years old with history of pain/bruise, pain TECHNIQUE: Frontal, lateral, and oblique images of the left foot are obtained. FINDINGS: Osseous structures are demineralized . Surgical change in level of the medial and lateral m alleolus is present. There is no acute fracture/dislocation evident in the left foot. The joint spac es in the left foot appear within normal limits. There is small to moderate size inferior calcaneal spur. The overlying soft tissue appears unremarkable. IMPRESSION: There is no acute fracture or dislocation in the left foot. [facility], , 03/24/2024 2:16 PM
[2024-03-24 16:33] LABS: Glucose,Whole Blood 123 mg/dL (70-110)
--- NOTE | 2024-03-24 17:50 | P.CNOR ---
History of Present Illness - HPI Consult date: 03/24/24 History of present illness: This is an 89-year-old female who is admitted after multiple falls. Orthopedics is consulted due to right knee pain. Patient states that she has had 2 falls this week. Patient states that her most recent fall caused her to land directly onto the right knee. Patient states that the knee is now swollen and painful she is unable to bear weight. Patient's past medical history is significant for diabetes mellitus, hypertension, acid reflux, TIA and history of brain bleed after a fall. Patient states that she normally takes Plavix. Patient denies any fever/chills, chest pain, shortness breath, abdominal pain, numbness, weakness or tingling. Review of Systems See HPI. Past Medical History Past Medical History: Diabetes Mellitus, Hypertension Additional Past Medical History / Comment(s): GERD, TIA 2013. Brain bleed 2023 History of Any Multi-Drug Resistant Organisms: None Reported Past Surgical History: Appendectomy, Cholecystectomy, Hysterectomy, Orthopedic Surgery Additional Past Surgical History / Comment(s): Breast lumpectomy(left), Cystoscope, Left ankle pin and plate Past Psychological History: Anxiety, Depression Smoking Status: Never smoker Past Alcohol Use History: Occasional Past Drug Use History: None Reported Medications and Allergies Home Medications Medication Instructions Recorded Confirmed Type Metoprolol Succinate (ER) [Toprol 25 mg PO DAILY 05/04/14 03/24/24 History XL] Omeprazole [PriLOSEC] 20 mg PO DAILY 05/04/14 03/24/24 History Alendronate Sodium [Fosamax] 70 mg PO PERRIN 03/24/24 03/24/24 History Cholecalciferol [Vitamin D3 (25 50 mcg PO DAILY 03/24/24 03/24/24 History Mcg = 1000 Iu)] Citalopram Hydrobromide [CeleXA] 20 mg PO DAILY 03/24/24 03/24/24 History Clopidogrel [Plavix] 75 mg PO DAILY 03/24/24 03/24/24 History Dulaglutide [Trulicity] 0.75 mg SQ PERRIN 03/24/24 03/24/24 History Magnesium Oxide [Mag-Ox] 400 mg PO DAILY 03/24/24 03/24/24 History Rosuvastatin [Crestor] 10 mg PO DAILY 03/24/24 03/24/24 History calcium polycarbophiL [Fibercon] 625 mg PO DAILY 03/24/24 03/24/24 History lisinopriL 2.5 mg PO DAILY 03/24/24 03/24/24 History sitaGLIPtin PHOS/metFORMIN HCL 1 tab PO DAILY 03/24/24 03/24/24 History [Janumet 50-500 mg Tablet] Allergies Allergy/AdvReac Type Severity Reaction Status Date / Time cefuroxime Allergy Rash/Hives Verified 03/24/24 08:34 losartan [From Cozaar] Allergy Itching Verified 03/24/24 08:34 Penicillins Allergy Rash/Hives Verified 03/24/24 08:34 sulfamethoxazole Allergy Rash/Hives Verified 03/24/24 08:34 [From Bactrim] trimethoprim [From Bactrim] Allergy Rash/Hives Verified 03/24/24 08:34 amoxicillin AdvReac Rash/Hives Verified 03/24/24 08:34 cephalexin monohydrate AdvReac Swelling - Verified 03/24/24 08:34 [From Keflex] mouth/lips ciprofloxacin [From Cipro] AdvReac Joint Pain Verified 03/24/24 08:34 ciprofloxacin HCl AdvReac Joint Pain Verified 03/24/24 08:34 [From Cipro] clindamycin HCl AdvReac Diarrhea Verified 03/24/24 08:34 [From Cleocin] clindamycin palmitate HCl AdvReac Diarrhea Verified 03/24/24 08:34 [From Cleocin] clindamycin phosphate AdvReac Diarrhea Verified 03/24/24 08:34 [From Cleocin] clotrimazole AdvReac Itching Verified 03/24/24 08:34 doxycycline AdvReac Itching/Yeast/Gi Verified 03/24/24 08:34 Upset levofloxacin [From Levaquin] AdvReac joint pain Verified 03/24/24 08:34 meloxicam [From Mobic] AdvReac Nausea Verified 03/24/24 08:34 methylprednisolone AdvReac joint pain Verified 03/24/24 08:34 [From Medrol] metronidazole AdvReac Nausea Verified 03/24/24 08:34 Physical Examination On exam patient is resting comfortably in bed in no acute distress. Patient is alert and oriented 3. Right lower extremity: There is mild to moderate knee effusion. There is a small abrasion to the anterior aspect of the right knee. There is no erythema. Patient has difficulty and limitation with flexion and extension of the right knee secondary to pain and swelling. Calf is soft and nontender to palpation. Patient has full foot and ankle motion without pain or difficulty. Sensation intact. Neurovascular status and circulatory status are intact. Results An x-ray report of the right knee dated 03/23/2024 shows: There is no acute fracture or dislocation in the right knee. Moderate to severe tricompartment degenerative change and spurring is seen. A CT of the right knee dated 03/23/2024 shows: No acute fracture or dislocation in the right knee. - Labs Labs: Abnormal Lab Results - Last 24 Hours (Table) 03/23/24 03/23/24 03/23/24 Range/Units 21:35 21:35 23:03 WBC 13.9 H (3.8-10.6) k/uL Neutrophils # 12.2 H (1.3-7.7) k/uL Lymphocytes # 0.8 L (1.0-4.8) k/uL Sodium 135 L (137-145) mmol/L BUN 20 H (7-17) mg/dL Glucose 114 H (74-99) mg/dL POC Glucose (mg/dL) 131 H (70-110) mg/dL Hemoglobin A1c (<=6.0) % AST 37 H (14-36) U/L 03/24/24 03/24/24 03/24/24 Range/Units 05:47 05:47 05:47 WBC (3.8-10.6) k/uL Neutrophils # (1.3-7.7) k/uL Lymphocytes # 0.8 L (1.0-4.8) k/uL Sodium 136 L (137-145) mmol/L BUN 25 H (7-17) mg/dL Glucose 119 H (74-99) mg/dL POC Glucose (mg/dL) (70-110) mg/dL Hemoglobin A1c 6.2 H (<=6.0) % AST (14-36) U/L 03/24/24 03/24/24 03/24/24 Range/Units 06:26 11:24 16:30 WBC (3.8-10.6) k/uL Neutrophils # (1.3-7.7) k/uL Lymphocytes # (1.0-4.8) k/uL Sodium (137-145) mmol/L BUN (7-17) mg/dL Glucose (74-99) mg/dL POC Glucose (mg/dL) 127 H 139 H 123 H (70-110) mg/dL Hemoglobin A1c (<=6.0) % AST (14-36) U/L H & H 03/23/24 03/24/24 Range/Units 21:35 05:47 Hgb 13.0 11.7 (11.4-16.0) gm/dL Hct 39.5 36.3 (34.0-46.0) % Result Diagrams: 03/24/24 05:47 03/24/24 05:47 Assessment and Plan (1) Effusion, right knee Current Visit: Yes Status: Acute Code(s): M25.461 - EFFUSION, RIGHT KNEE SNOMED Code(s): 450857796318626 (2) Osteoarthritis of right knee Current Visit: Yes Status: Acute Code(s): M17.11 - UNILATERAL PRIMARY OSTE OARTHRITIS, RIGHT KNEE SNOMED Code(s): 859704072146977 (3) Multiple falls Current Visit: Yes Status: Acute Code(s): R29.6 - REPEATED FALLS SNOMED Code(s): 965979267 (4) Fall Current Visit: No Status: Acute Code(s): W19.XXXA - UNSPECIFIED FALL, INITIAL ENCOUNTER SNOMED Code(s): 4914144 Plan: 1. Imaging is reviewed revealing moderate to severe arthritic changes. Aspiration of the right knee is discussed at bedside today and patient consents to proceed. The right knee is prepped with ChloraPrep and anesthetized with 3 mL of 1% lidocaine using a 23-gauge needle under sterile technique. Then the left knee is aspirated with an 18-gauge needle using sterile technique and 27cc of bloody fluid is obtained. Patient tolerated the procedure well. A compressive Chinmay wrap is applied to the left knee. 2. Patient may be weightbearing as tolerated. Rest and ice the knee as needed for swelling. 3. Recommend physical therapy for mobilization. 4. We will continue to follow. Patient was seen and evaluated independently, agree with the above history, on exam of the right knee the skin is intact she has improvement of her effusion after aspiration. Remains to be tender to palpation mostly to the anterior aspect of the knee she has tenderness along the extensor mechanism, there is some concern for defect along the inferior aspect of the extensor mechanism. Patient at this time is unable to perform a straight leg raise and she is unable to maintain the right knee in extension when passively extended. She continues to exhibit fullness to the posterior aspect of the knee. There is no varus or valgus instability to the knee. Passive ROM of the knee from 0- 100 however pain with terminal flexion. Patient has intact sensation throughout the right lower extremity she is able to plantar and dorsiflex the ankle and has palpable DP pulse and brisk capillary refill to the right foot. Tertiary exam reveals no further orthopedic injuries, however she did sustain notable trauma to her face and resultant echymosis. Given her inability to perform a straight leg raise and difficulty with weightbearing following her fall onto her right knee I do have a concern that she may have an extensor mechanism disruption. CT and plain films are difficult to assessed given the position of her knee not allowing appropriate measurement of patellar position. We will obtain an MRI of the right knee in order to fully evaluate the extensor mechanism. For now I recommend weightbearing as tolerated to the right knee however she should be in a knee immobilizer or knee brace that is locked in extension until we can properly assessed the extensor mechanism. Ice and elevation to the right knee to help with pain and swelling Primitivo Cheng MD
[2024-03-24] MEDS: LIDOCAINE 1% INJ 10MG/ML (20 ML MDV) SQ ONE (18:02)
[2024-03-24] MEDS: LIDOCAINE 2% (PF) 20 MG/ML 10 ML AMP SQ STA (18:08)
[2024-03-24 18:50] LABS: Appearance,BF Bloody; Color,BF Red; Nucleated Cells, Body Fluid 31500 /uL; RBC, Body Fluid 487500 /uL
[2024-03-24 18:53] LABS: Mononuclear WBC,Body Fluid 16 %; Polynuclear WBC,Body Fluid 82 %; Total Cells Counted,Body Fluid 100
[2024-03-24 20:39] LABS: Glucose,Whole Blood 196 mg/dL (70-110)
[2024-03-24] MEDS: IBUPROFEN 400 MG TAB PO PRN (20:59)
[2024-03-25 03:55] LABS: Synovial Fld Crystals None Seen (None Seen)
[2024-03-25 06:22] LABS: Glucose,Whole Blood 129 mg/dL (70-110)
[2024-03-25 11:48] LABS: Glucose,Whole Blood 145 mg/dL (70-110)
[2024-03-25 16:30] LABS: Glucose,Whole Blood 236 mg/dL (70-110)
--- NOTE | 2024-03-25 19:42 | P.PN ---
Subjective Progress Note Date: 03/25/24 This is an 89-year-old female with medical history significant for diabetes mellitus, hypertension, acid reflux, TIA with no residuals back in 2013. Patient also had a brain bleed in 2023 secondary to a fall where she hit her head. Patient is maintained on Plavix daily. She comes into the hospital she had a fall on Thursday where she was walking up steps misstepped fell hit her head into the wall she came to the ER to be evaluated she had a had cervical spine CT that showed no acute intracranial process but she did have some right frontal superficial soft tissue swelling and there is some obvious bruising noted on her forehead and she has bilateral black eyes. Patient was discharged home from the ER however she comes back with a second fall on Thursday where she fell going down steps and landed on her knees. Since then she has had significant pain in her right knee with some obvious soft tissue swelling. Knee x-ray reveals no acute fracture or dislocation of the right knee however there is moderate to severe tricompartment degenerative change and spurring is seen. Patient had a follow-up CT of the right knee which again confirms a large sized suprapatellar joint effusion and patient is at this time unable to bear weight secondary to the pain. Orthopedics was consulted for further evaluation and possible aspiration we did hold her Plavix today. Will work reveals a white blood cell count of 13.9, sodium 135, BUN of 20 creatinine 0.94 AST of 37. Hemodynamically she is stable. 03/25/2024 Patient is seen in follow-up today currently sitting up in the chair and has worked with physical therapy. Patient continues to report significant right knee pain with orthopedics following. No fractures noted although there is significant swelling and patient reports she just had an aspiration of the knee which was sent for analysis. Approximately 27 cc taken. Patient is to be on a knee immobilizer and will order. Patient is being followed by case management currently awaiting to go to [facility] for continued strength and mobility. Insurance authorization has been submitted and pending at this time. Patient is afebrile with no reports of chest pain or shortness of breath. Patient will continue on pain regimen along with bowel regimen as needed and other home medications reviewed and resumed as appropriate. Patient does continue to have significant swelling which has slightly improved of bilateral eye orbits and significant ecchymosis and patient denies any visual disturbances. Patient does wear glasses. Review of systems: Constitutional: No reports of fatigue, fever, or chills Cardiovascular: No reports of chest pain or palpitations Respiratory: No reports of shortness of breath or cough GI: No reports of nausea, vomiting, or diarrhea : No reports of dysuria or retention Neurovascular: reports of generalized weakness with right knee pain and swelling but slightly improved All medications have been reviewed PHYSICAL EXAMINATION: GENERAL: The patient is alert and oriented x3, extremely pleasant, not in any acute distress. Well developed, elderly appearing HEENT: Pupils are round and equally reacting to light. EOMI. No scleral icterus. No conjunctival pallor. Normocephalic, atraumatic. No pharyngeal erythema. No thyromegaly. CARDIOVASCULAR: S1 and S2 present. No murmurs, rubs, or gallops. PULMONARY: Chest is clear to auscultation, no wheezing or crackles. ABDOMEN: Soft, nontender, nondistended, normoactive bowel sounds. No palpable or ganomegaly. MUSCULOSKELETAL: No joint swelling or deformity. EXTREMITIES: No cyanosis, clubbing, or pedal edema. Right knee swelling NEUROLOGICAL: Gross neurological examination did not reveal any focal deficits. Diffusely weak SKIN: No rashes. Patient has soft tissue swelling over the right forehead and bilateral black eyes, significant bruising to the left great toe extending down the foot and traveling other toes Assessment: Traumatic fall with soft tissue head trauma on the right forehead Right knee pain with large joint effusion post fall, status post aspiration per orthopedics Bruising and pain to the left great toe post fall Diabetes Mellitus type 2 Hypertension currently normotensive holding lisinopril Gastroesophageal reflux disease TIA in 2013 with no residual Hx of brain bleed in 2023 post fall Anxiety/Depression GI Prophylaxis DVT prophylaxis No Code Plan: Ortho has evaluated the patient with no plans of surgical intervention and patient is status post needle aspiration at the bedside of the right knee joint effusion and specimen was sent Recommending knee immobilizer and patient may toe-touch and recommend working with physical therapy daily MRI of the lower extremity has been ordered and pending Patient initially evaluated by physical therapy and is recommending rehab with case management consulted and following has submitted for insurance authorizatio n to [facility] on the [place]. Patient has been accepted pending authorization. Hold lisinopril for now and will follow-up on repeat labs. Hold plavix for now pending Orthopedic recommendations Resume all other appropriate home medications Continue accuchecks ACHS and will adjust insulins accordingly The impression and plan of care has been dictated by Ernestina Avilez, Nurse Practitioner as directed. Dr. Chris MD I have performed a history and physical examination and medical decision making of this patient, discussed the same with the dictator, and agree with the dictators assessment and plan as written, documented as a scribe. Based on total visit time, I have performed more than 50% of this visit. Objective - Vital Signs Vital signs: Vital Signs Temp 97.9 F 03/25/24 12:56 Pulse 87 03/25/24 12:56 Resp 18 03/25/24 12:56 BP 132/71 03/25/24 12:56 Pulse Ox 97 03/25/24 12:56 FiO2 Intake & Output 03/25/24 03/25/24 03/26/24 06:59 18:59 06:59 Output Total 775 Balance -775 Output: Urine 775 Other: Voiding Method Bedside Commode External Catheter External Catheter # Voids 2 # Bowel Movements 1 - Labs CBC & Chem 7: 03/24/24 05:47 03/24/24 05:47 Labs: Abnormal Lab Results - Last 24 Hours (Table) 03/24/24 03/25/24 03/25/24 Range/Units 20:37 06:21 11:45 POC Glucose (mg/dL) 196 H 129 H 145 H (70-110) mg/dL 03/25/24 Range/Units 16:28 POC Glucose (mg/dL) 236 H (70-110) mg/dL Microbiology - Last 24 Hours (Table) 03/24/24 17:40 Gram Stain - Preliminary Knee - Right
[2024-03-25 20:50] LABS: Glucose,Whole Blood 143 mg/dL (70-110)
[2024-03-26 07:15] LABS: Glucose,Whole Blood 123 mg/dL (70-110)
--- NOTE | 2024-03-26 10:34 | P.PN ---
Progress Note - Text Progress Note Date: 03/26/24 Patient continues to have significant right knee pain and inability to perform a straight leg raise. concern remains for extensor mechanism injury. Still awaiting on MRI for evaluation of the knee extensor mechanism. this will ultimately determine if any surigal intervention is required. awaiting MRI currently to assess need for surgical intervention for now WBAT in KI ice and elevation to help with swelling multimodal pain regimen for pain control PT and OT evaluations ortho will follow and provide further updates after MRI is completed
[2024-03-26 11:21] LABS: Glucose,Whole Blood 172 mg/dL (70-110)
[2024-03-26 16:49] LABS: Glucose,Whole Blood 144 mg/dL (70-110)
--- NOTE | 2024-03-26 18:22 | MR ---
EXAMINATION TYPE: MR knee RT wo con DATE OF EXAM: 03/26/2024 12:23 PM COMPARISON: Plain film. CT. CLINICAL INDICATION: Female, 89 years old with history of evaluate for extensor mechanism rupture;, R T knee trauma from fall, swelling, pain TECHNIQUE: Multi planar, multi sequence imaging was performed of the knee including: Triplane proton density fat-saturated images and T1-weighted imaging. No Gadolinium was given. IV Contrast: none if empty) FINDINGS: There is severe degeneration changes throughout the knee with subchondral cystic change, osteophytes and cartilage loss in all 3 compartments. Present and most pronounced in the lateral knee. Diffuse de generative meniscus laterally while the medial meniscus appears more grossly intact. There is a large complex joint effusion. The patellar tendon is undulating and tortuous. Mild edema in near its expected insertion on the tibi a. There is suspected hematoma present There is linear calcified finding in this area on the deep por tion of the patellar tendon near its insertion on CT imaging. There is low T2/T1 signal lesion where it attaches series 301 image 23 Diffuse soft tissue swelling around the knees present. The anterior and posterior cruciate ligaments appear intact. Popliteal fossa complex Cowan's cyst measuring up to 5.7 x 1.3 cm. IMPRESSION: Motion limited exam. 1. Tortuous patellar tendon with heterogenous insertion on the tibia findings suspicious for complet e avulsion injury to the patellar tendon with complete rupture suspected. No additional evidence for acute fracture. 2. Severe end-stage osteoarthrosis. With severely degenerative lateral meniscus. 3. Large Cowan's cyst. 4. Complex joint effusion likely secondary to #1. [facility], , 03/26/2024 6:20 PM
--- NOTE | 2024-03-26 20:52 | P.PN ---
Subjective Progress Note Date: 03/26/24 This is an 89-year-old female with medical history significant for diabetes mellitus, hypertension, acid reflux, TIA with no residuals back in 2013. Patient also had a brain bleed in 2023 secondary to a fall where she hit her head. Patient is maintained on Plavix daily. She comes into the hospital she had a fall on Thursday where she was walking up steps misstepped fell hit her head into the wall she came to the ER to be evaluated she had a had cervical spine CT that showed no acute intracranial process but she did have some right frontal superficial soft tissue swelling and there is some obvious bruising noted on her forehead and she has bilateral black eyes. Patient was discharged home from the ER however she comes back with a second fall on Thursday where she fell going down steps and landed on her knees. Since then she has had significant pain in her right knee with some obvious soft tissue swelling. Knee x-ray reveals no acute fracture or dislocation of the right knee however there is moderate to severe tricompartment degenerative change and spurring is seen. Patient had a follow-up CT of the right knee which again confirms a large sized suprapatellar joint effusion and patient is at this time unable to bear weight secondary to the pain. Orthopedics was consulted for further evaluation and possible aspiration we did hold her Plavix today. Will work reveals a white blood cell count of 13.9, sodium 135, BUN of 20 creatinine 0.94 AST of 37. Hemodynamically she is stable. 03/25/2024 Patient is seen in follow-up today currently sitting up in the chair and has worked with physical therapy. Patient continues to report significant right knee pain with orthopedics following. No fractures noted although there is significant swelling and patient reports she just had an aspiration of the knee which was sent for analysis. Approximately 27 cc taken. Patient is to be on a knee immobilizer and will order. Patient is being followed by case management currently awaiting to go to [facility] for continued strength and mobility. Insurance authorization has been submitted and pending at this time. Patient is afebrile with no reports of chest pain or shortness of breath. Patient will continue on pain regimen along with bowel regimen as needed and other home medications reviewed and resumed as appropriate. Patient does continue to have significant swelling which has slightly improved of bilateral eye orbits and significant ecchymosis and patient denies any visual disturbances. Patient does wear glasses. 03/26/2024 Patient is evaluated in follow-up. Has been working with physical therapy. Patient has knee immobilizer in place. Currently pending final cultures from the knee aspiration. Patient will be going for an MRI of her knee today. Review of systems: Constitutional: No reports of fatigue, fever, or chills Cardiovascular: No reports of chest pain or palpitations Respiratory: No reports of shortness of breath or cough GI: No reports of nausea, vomiting, or diarrhea : No reports of dysuria or retention Neurovascular: reports of generalized weakness with right knee pain and swelling but slightly improved All medications have been reviewed PHYSICAL EXAMINATION: GENERAL: The patient is alert and oriented x3, extremely pleasant, not in any acute distress. Well developed, elderly appearing HEENT: Pupils are round and equally reacting to light. EOMI. No scleral icterus. No conjunctival pallor. Normocephalic, atraumatic. No pharyngeal erythema. No thyromegaly. CARDIOVASCULAR: S1 and S2 present. No murmurs, rubs, or gallops. PULMONARY: Chest is clear to auscultation, no wheezing or crackles. ABDOMEN: Soft, nontender, nondistended, normoactive bowel sounds. No palpable organomegaly. MUSCULOSKELETAL: No joint swelling or deformity. EXTREMITIES: No cyanosis, clubbing, or pedal edema. Right knee swelling NEUROLOGICAL: Gross neurological examination did not reveal any focal deficits. Diffusely weak SKIN: No rashes. Patient has soft tissue swelling over the right forehead and bilateral black eyes, significant bruising to the left great toe extending down the foot and traveling other toes Assessment: Traumatic fall with soft tissue head trauma on the right forehead Right knee pain with large joint effusion post fall, status post aspiration per orthopedics Bruising and pain to the left great toe post fall Diabetes Mellitus type 2 Hypertension currently normotensive holding lisinopril Gastroesophageal reflux disease TIA in 2013 with no residual Hx of brain bleed in 2023 post fall Anxiety/Depression GI Prophylaxis DVT prophylaxis No Code Plan: Ortho has evaluated the patient with no plans of surgical intervention and patient is status post needle aspiration at the bedside of the right knee joint effusion and specimen was sent Recommending knee immobilizer and patient may toe-touch and recommend working [facility] physical therapy daily MRI of the lower extremity has been ordered and pending Patient initially evaluated by physical therapy and is recommending rehab with case management consulted and following has submitted for insurance authorization to [facility] on the [address]. Patient has been accepted pending authorization. Hold lisinopril for now and will follow-up on repeat labs. Hold plavix for now pending Orthopedic recommendations Resume all other appropriate home medications Continue accuchecks ACHS and will adjust insulins accordingly The impression and plan of care has been dictated by Ernestina Avilez, Nurse Practitioner as directed. Dr. Chris MD I have performed a history and physical examination and medical decision making of this patient, discussed the same with the dictator, and agree with the dictators assessment and plan as written, documented as a scribe. Based on total visit time, I have performed more than 50% of this visit. Objective - Vital Signs Vital signs: Vital Signs Temp 98.3 F 03/26/24 07:30 Pulse 100 03/26/24 07:30 Resp 16 03/26/24 07:30 BP 157/74 03/26/24 07:30 Pulse Ox 92 L 03/26/24 07:30 FiO2 Intake & Output 03/25/24 03/26/24 03/26/24 18:59 06:59 18:59 Output Total 775 850 300 Balance -775 -850 -300 Output: Urine 775 850 300 Other: Voiding Method External Catheter External Catheter External Catheter # Voids 1 - Labs CBC & Chem 7: 03/24/24 05:47 03/24/24 05:47 Labs: Abnormal Lab Results - Last 24 Hours (Table) 03/25/24 03/25/24 03/26/24 Range/Units 16:28 20:49 07:13 POC Glucose (mg/dL) 236 H 143 H 123 H (70-110) mg/dL 03/26/24 Range/Units 11:20 POC Glucose (mg/dL) 172 H (70-110) mg/dL Microbiology - Last 24 Hours (Table) 03/24/24 17:40 Gram Stain - Preliminary Knee - Right Assessment and Plan Time with Patient: Less than 30
[2024-03-26 21:11] LABS: Glucose,Whole Blood 168 mg/dL (70-110)
[2024-03-27 06:37] LABS: Glucose,Whole Blood 126 mg/dL (70-110)
--- NOTE | 2024-03-27 08:55 | P.PN ---
Progress Note - Text Progress Note Date: 03/27/24 I was asked to see the patient and manage her right knee injury by my partner Dr. Cheng. I reviewed the patient's chart including all of her imaging and met with and examined the patient this morning. She has a severely arthritic right knee that has been moderately symptomatic for her in the past. She has had several falls recently resulting in an acute injury to her right knee. Clinically she has an inability to perform a straight leg raise and her MRI shows a distal avulsion of the patellar tendon from the tibial tuberosity. In addition to this she has advanced arthritis in her knee. My recommendation would be to surgically repair the patellar tendon back to the tibial tuberosity to help restore her extensor mechanism. We discussed the procedure and potential risks and complications at length. We also discussed issues with surgical fixation given her advanced age and likely poor tendon and bone quality. We also discussed the role her advanced knee arthritis plays in her recovery and that she will likely have symptoms related to this. She voiced her understanding of all this. We will plan for surgical repair of her patellar tendon tomorrow afternoon. The patient lives alone and planning is already in progress for discharge to a shelter facility following surgery.
[2024-03-27 11:42] LABS: Glucose,Whole Blood 169 mg/dL (70-110)
[2024-03-27] MEDS: ONDANSETRON 4 MG/2 ML VIAL IVP PRN (15:29)
[2024-03-27 16:45] LABS: Glucose,Whole Blood 155 mg/dL (70-110)
--- NOTE | 2024-03-27 17:49 | XR ---
EXAMINATION TYPE: XR chest 2V DATE OF EXAM: 03/27/2024 5:21 PM COMPARISON: Chest radiographs from 06/26/2013 CLINICAL INDICATION: Female, 89 years old with history of to clear for surgery; knee pain TECHNIQUE: XR chest 2V Frontal and lateral views of the chest. FINDINGS: Lungs/Pleura: There is no evidence of pleural effusion, focal consolidation, or pneumothorax. Pulmonary vascularity: Unremarkable. Heart/mediastinum: Cardiomediastinal silhouette is unremarkable. Musculoskeletal: No acute osseous pathology. IMPRESSION: No acute cardiopulmonary disease/process. [facility], , 03/27/2024 5:47 PM
--- NOTE | 2024-03-27 20:18 | P.PN ---
Subjective Progress Note Date: 03/27/24 This is an 89-year-old female with medical history significant for diabetes mellitus, hypertension, acid reflux, TIA with no residuals back in 2013. Patient also had a brain bleed in 2023 secondary to a fall where she hit her head. Patient is maintained on Plavix daily. She comes into the hospital she had a fall on Thursday where she was walking up steps misstepped fell hit her head into the wall she came to the ER to be evaluated she had a had cervical spine CT that showed no acute intracranial process but she did have some right frontal superficial soft tissue swelling and there is some obvious bruising noted on her forehead and she has bilateral black eyes. Patient was discharged home from the ER however she comes back with a second fall on Thursday where she fell going down steps and landed on her knees. Since then she has had significant pain in her right knee with some obvious soft tissue swelling. Knee x-ray reveals no acute fracture or dislocation of the right knee however there is moderate to severe tricompartment degenerative change and spurring is seen. Patient had a follow-up CT of the right knee which again confirms a large sized suprapatellar joint effusion and patient is at this time unable to bear weight secondary to the pain. Orthopedics was consulted for further evaluation and possible aspiration we did hold her Plavix today. Will work reveals a white blood cell count of 13.9, sodium 135, BUN of 20 creatinine 0.94 AST of 37. Hemodynamically she is stable. 03/25/2024 Patient is seen in follow-up today currently sitting up in the chair and has worked with physical therapy. Patient continues to report significant right knee pain with orthopedics following. No fractures noted although there is significant swelling and patient reports she just had an aspiration of the knee which was sent for analysis. Approximately 27 cc taken. Patient is to be on a knee immobilizer and will order. Patient is being followed by case management currently awaiting to go to [facility] for continued strength and mobility. Insurance authorization has been submitted and pending at this time. Patient is afebrile with no reports of chest pain or shortness of breath. Patient will continue on pain regimen along with bowel regimen as needed and other home medications reviewed and resumed as appropriate. Patient does continue to have significant swelling which has slightly improved of bilateral eye orbits and significant ecchymosis and patient denies any visual disturbances. Patient does wear glasses. 03/26/2024 Patient is evaluated in follow-up. Has been working with physical therapy. Patient has knee immobilizer in place. Currently pending final cultures from the knee aspiration. Patient will be going for an MRI of her knee today. 03/27/2024 Patient evaluated today sitting up in the chair. No acute complaints. Knee MRI reveals complete rupture of the patellar tendon. Patient scheduled to undergo surgical repair of this tomorrow. Chest xray is negative for acute findings. EKG and Urinalysis ordered for preoperative clearance. Plavix has been on hold for sugical intervention. Cardiology consulted for preoperative clearance. Most recent echocardiogram in the system reveals an EF of 55-60% with mild to moderate aortic regurgitation. This was back in 2018. Patient is not having any chest pain or shortness of breath. Periorbital bruising is improving. Review of systems: Constitutional: No reports of fatigue, fever, or chills Cardiovascular: No reports of chest pain or palpitations Respiratory: No reports of shortness of breath or cough GI: No reports of nausea, vomiting, or diarrhea : No reports of dysuria or retention Neurovascular: reports of generalized weakness with right knee pain and swelling but slightly improved All medications have been reviewed PHYSICAL EXAMINATION: GENERAL: The patient is alert and oriented x3, extremely pleasant, not in any acute distress. Well developed, elderly appearing HEENT: Pupils are round and equally reacting to light. EOMI. No scleral icterus. No conjunctival pallor. Normocephalic, atraumatic. No pharyngeal erythema. No thyromegaly. CARDIOVASCULAR: S1 and S2 present. No murmurs, rubs, or gallops. PULMONARY: Chest is clear to auscultation, no wheezing or crackles. ABDOMEN: Soft, nontender, nondistended, normoactive bowel sounds. No palpable organomegaly. MUSCULOSKELETAL: No joint swelling or deformity. EXTREMITIES: No cyanosis, clubbing, or pedal edema. Right knee swelling NEUROLOGICAL: Gross neurological examination did not reveal any focal deficits. Diffusely weak SKIN: No rashes. Patient has soft tissue swelling over the right forehead and bilateral black eyes, significant bruising to the left great toe extending down the foot and traveling other toes Assessment: Traumatic fall with soft tissue head trauma on the right forehead Right knee pain with large joint effusion post fall, status post aspiration per orthopedics Complete rupture of patellar tendon on the right Bruising and pain to the left great toe post fall Diabetes Mellitus type 2 Hypertension currently normotensive holding lisinopril Gastroesophageal reflux disease TIA in 2013 with no residual Hx of brain bleed in 2023 post fall Anxiety/Depression GI Prophylaxis DVT prophylaxis No Code Plan: Patient is status post needle aspiration at the bedside of the right knee joint effusion and specimen was sent, cultures are negative so far. Recommending knee immobilizer and patient may toe-touch and recommend working with physical therapy daily MRI of the lower extremity completed with findings of complete rupture of the patellar tendon on the right and patient is scheduled for surgical intervention tomorrow 03/28/[address] Hawley. Cardiology consulted for preoperative clearance. Patient initially evaluated by physical therapy and is recommending rehab with case management consulted and following has submitted for insurance authorization to [facility] on the [address]. Patient has been accepted pending authorization. Hold lisinopril for now and will follow-up on repeat labs. Hold plavix for now pending Orthopedic recommendations Resume all other appropriate home medications Continue accuchecks ACHS and will adjust insulins accordingly The impression and plan of care has been dictated by Ernestina Avilez, Nurse Practitioner as directed. Dr. Chris MD I have performed a history and physical examination and medical decision making of this patient, discussed the same with the dictator, and agree with the dictators assessment and plan as written, documented as a scribe. Based on total visit time, I have performed more than 50% of this visit. Objective - Vital Signs Vital signs: Vital Signs Temp 97.8 F 03/27/24 01:11 Pulse 91 03/27/24 01:11 Resp 18 03/27/24 01:11 BP 132/89 03/27/24 01:11 Pulse Ox 92 L 03/27/24 01:11 FiO2 Intake & Output 03/26/24 03/27/24 03/27/24 18:59 06:59 18:59 Output Total 300 2 Balance -300 -2 Output: Urine 300 Stool 2 Other: Voiding Method External Catheter External Catheter Incontinent External Catheter # Voids 2 850 # Bowel Movements 1 - Labs CBC & Chem 7: 03/24/24 05:47 03/24/24 05:47 Labs: Abnormal Lab Results - Last 24 Hours (Table) 03/26/24 03/26/2403/26/25 Range/Units 11:20 16:47 21:10 POC Glucose (mg/dL) 172 H 144 H 168 H (70-110) mg/dL 03/27/24 Range/Units 06:35 POC Glucose (mg/dL) 126 H (70-110) mg/dL Microbiology - Last 24 Hours (Table) 03/24/24 17:40 Gram Stain - Preliminary Knee - Right Body Fluid Culture - Preliminary Assessment and Plan Time with Patient: Less than 30
[2024-03-27 22:07] LABS: Glucose,Whole Blood 168 mg/dL (70-110)
[2024-03-28 00:47] LABS: Amorphous Sediment,Urine Rare /hpf; Appearance,Urine Cloudy (Clear); Bacteria,Urine Few /hpf; Bilirubin,Urine Negative (Negative); Blood,Urine Small (Negative); Budding Yeast,Urine Occasional /hpf; Calcium Oxalate Crystals,Urine Occasional /hpf; Color,Urine Colorless; Glucose,Urine (UA) Negative (Negative); Ketones,Urine Negative (Negative); Leukocyte Esterase,Urine Large (Negative); Nitrite,Urine Positive (Negative); Protein,Urine Negative (Negative); RBC,Urine 5 /hpf (0-5); Squamous Epithelial Cell,Urine 1 /hpf (0-4); Urobilinogen,Urine <2.0 mg/dL (<2.0); WBC,Urine 46 /hpf (0-5)
[2024-03-28 06:35] LABS: Glucose,Whole Blood 157 mg/dL (70-110)
[2024-03-28 08:56] LABS: BUN/Creat Ratio 25.38 Ratio (12.00-20.00); Blood Urea Nitrogen 20.3 mg/dL (9.0-27.0); Calcium 9.1 mg/dL (8.7-10.3); Chloride 100 mmol/L (96-109); Glucose 131 mg/dL (70-110); Potassium 4.4 mmol/L (3.5-5.5); Sodium 136 mmol/L (135-145)
[2024-03-28 09:32] LABS: Basophils # (A) 0.05 X 10*3/uL (0.00-0.10); Basophils % (A) 0.5 %; Eosinophils # (A) 0.11 X 10*3/uL (0.04-0.35); Eosinophils % (A) 1.2 %; HCT 35.5 % (37.2-46.3); Lymphocytes # (A) 1.06 X 10*3/uL (0.90-5.00); Lymphocytes % (A) 11.6 %; MCV 90.3 FL (80.0-97.0); Monocytes # (A) 0.97 X 10*3/uL (0.20-1.00); Monocytes % (A) 10.6 %; NRBC Per 100 WBC 0 X 10*3/uL (0.00-0.01); Neutrophils # (A) 6.91 X 10*3/uL (1.80-7.70); Neutrophils % (A) 75.7 %; Platelet Count 221 X 10*3/uL (140-440); RBC 3.93 X 10*6/uL (4.10-5.20); RDW 13.3 % (11.5-14.5); WBC 9.14 X 10*3/uL (4.50-10.00)
--- NOTE | 2024-03-28 10:31 | P.CRDCN ---
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 Patient follows in the office with Dr. Walker. We have been asked to see the patient in consultation for cardiac clearance. Patient examined at the bedside. Patient presented to the hospital after sustaining a fall at home. She states on Thursday she was walking up the stairs when her left knee gave out and she fell hitting her face. She states on Thursday she was going down the stairs and her right knee gave out and she again fell. She denies losing consciousness. Patient denies having any chest pain or pressure. She denies any shortness of breath. Patient is scheduled to undergo right patellar tendon repair today with orthopedics. DIAGNOSTICS: - EKG reveals sinus mechanism with no signs of acute ischemia. - Chest xray negative for acute process - Laboratory data: WBC 9.14. Hemoglobin 11.0. Platelet count 221. Sodium 136. Potassium 4.4. BUN 20. Creatinine 0.8. - Current home cardiac medications include rosuvastatin 10 mg daily, Plavix 75 mg daily, metoprolol succinate 25 mg daily, lisinopril 2.5 mg daily. - Most recent echocardiogram obtained in July 2021 revealing normal EF, moderate MR, mild AR -Patient underwent Lexiscan stress test in 2019 which revealed small apical ischemia REVIEW OF SYSTEMS: At the time of my exam: CONSTITUTIONAL: Denies fever or chills. HEENT: Denies blurred vision, vision changes, or eye pain. Denies hemoptysis CARDIOVASCULAR: Denies chest pain. Denies orthopnea. Denies PND. Denies palpitations RESPIRATORY: Denies shortness of breath. GASTROINTESTINAL: Denies abdominal pain. Denies nausea or vomiting. HEMATOLOGIC: Denies bleeding disorders. GENITOURINARY: Denies any blood in urine. SKIN: Denies pruitis. Denies rash. PHYSICAL EXAM: VITAL SIGNS: Reviewed. GENERAL: Well-developed in no acute distress. HEENT: Patient with significant bruising. Head is normocephalic. Pupils are equal, round. Sclerae anicteric. Mucous membranes of the mouth are moist. Neck supple. No JVD or thyromegaly LUNGS: Respirations even and unlabored. Lungs essentially clear to auscultation bilaterally. HEART: Regular rate and rhythm. S1 and S2 heard. Systolic murmur noted ABDOMEN: Soft. Nondistended. Nontender. EXTREMITIES: Normal range of motion. No clubbing or cyanosis. Peripheral pulses intact. No lower extremity edema NEUROLOGIC: Awake and alert. Oriented x 3. ASSESSMENT: Status post mechanical fall without syncope Complete rupture of right patellar tendon Hypertension Hyperlipidemia Diabetes Valvular heart disease including moderate MR and mild AR Reported CVA/TIA, 2013, on Plavix outpatient PLAN: Plavix remains on hold. From a cardiac standpoint, this does not need to be resumed. Continue additional cardiac medications Obtain 2D echo to assess cardiac structure and function Patient without complaints of angina and is clinically not in congestive heart failure. Patient is at intermediate risk to proceed from a cardiac standpoint. However there are no absolute contraindications. Further recommendations pending patient course Nurse practitioner note has been reviewed by physician. Signing provider agrees with the documented findings, assessment, and plan of care documented by WINDOW TREATMENT INSTALLER as a scribe. Past Medical History Past Medical History: Diabetes Mellitus, Hypertension Additional Past Medical History / Comment(s): GERD, TIA 2013. Brain bleed 2023 History of Any Multi-Drug Resistant Organisms: None Reported Past Surgical History: Appendectomy, Cholecystectomy, Hysterectomy, Orthopedic S urgery Additional Past Surgical History / Comment(s): Breast lumpectomy(left), Cystoscope, Left ankle pin and plate Past Psychological History: Anxiety, Depression Smoking Status: Never smoker Past Alcohol Use History: Occasional Past Drug Use History: None Reported Medications and Allergies Home Medications Medication Instructions Recorded Confirmed Type Metoprolol Succinate (ER) [Toprol 25 mg PO DAILY 05/04/14 03/24/24 History XL] Omeprazole [PriLOSEC] 20 mg PO DAILY 05/04/14 03/24/24 History Alendronate Sodium [Fosamax] 70 mg PO PERRIN 03/24/24 03/24/24 History Cholecalciferol [Vitamin D3 (25 50 mcg PO DAILY 03/24/24 03/24/24 History Mcg = 1000 Iu)] Citalopram Hydrobromide [CeleXA] 20 mg PO DAILY 03/24/24 03/24/24 History Clopidogrel [Plavix] 75 mg PO DAILY 03/24/24 03/24/24 History Dulaglutide [Trulicity] 0.75 mg SQ PERRIN 03/24/24 03/24/24 History Magnesium Oxide [Mag-Ox] 400 mg PO DAILY 03/24/24 03/24/24 History Rosuvastatin [Crestor] 10 mg PO DAILY 03/24/24 03/24/24 History calcium polycarbophiL [Fibercon] 625 mg PO DAILY 03/24/24 03/24/24 History lisinopriL 2.5 mg PO DAILY 03/24/24 03/24/24 History sitaGLIPtin PHOS/metFORMIN HCL 1 tab PO DAILY 03/24/24 03/24/24 History [Janumet 50-500 mg Tablet] Allergies Allergy/AdvReac Type Severity Reaction Status Date / Time cefuroxime Allergy Rash/Hives Verified 03/24/24 08:34 losartan [From Cozaar] Allergy Itching Verified 03/24/24 08:34 Penicillins Allergy Rash/Hives Verified 03/24/24 08:34 sulfamethoxazole Allergy Rash/Hives Verified 03/24/24 08:34 [From Bactrim] trimethoprim [From Bactrim] Allergy Rash/Hives Verified 03/24/24 08:34 amoxicillin AdvReac Rash/Hives Verified 03/24/24 08:34 cephalexin monohydrate AdvReac Swelling - Verified 03/24/24 08:34 [From Keflex] mouth/lips ciprofloxacin [From Cipro] AdvReac Joint Pain Verified 03/24/24 08:34 ciprofloxacin HCl AdvReac Joint Pain Verified 03/24/24 08:34 [From Cipro] clindamycin HCl AdvReac Diarrhea Verified 03/24/24 08:34 [From Cleocin] clindamycin palmitate HCl AdvReac Diarrhea Verified 03/24/24 08:34 [From Cleocin] clindamycin phosphate AdvReac Diarrhea Verified 03/24/24 08:34 [From Cleocin] clotrimazole AdvReac Itching Verified 03/24/24 08:34 doxycycline AdvReac Itching/Yeast/Gi Verified 03/24/24 08:34 Upset levofloxacin [From Levaquin] AdvReac joint pain Verified 03/24/24 08:34 meloxicam [From Mobic] AdvReac Nausea Verified 03/24/24 08:34 methylprednisolone AdvReac joint pain Verified 03/24/24 08:34 [From Medrol] metronidazole AdvReac Nausea Verified 03/24/24 08:34 Physical Exam Vitals: Vital Signs Temp Pulse Resp BP Pulse Ox 03/28/24 07:05 97.6 F 94 19 147/73 93 L 03/27/24 20:30 16 03/27/24 19:20 97.9 F 92 16 124/76 93 L 03/27/24 14:15 98.2 F 86 16 118/68 95 Intake and Output 03/27/24 03/28/24 03/28/24 22:59 06:59 14:59 Output Total 700 Balance -700 Output: Urine 700 Other: Voiding Method Incontinent External Catheter Results 03/28/24 03:55 03/28/24 03:55 CBC 03/28/24 Range/Units 03:55 WBC 9.14 (4.50-10.00) X 10*3/uL RBC 3.93 L (4.10-5.20) X 10*6/uL Hgb 11.0 L (12.0-15.0) g/dL Hct 35.5 L (37.2-46.3) % Plt Count 221 (140-440) X 10*3/uL Comprehensive Metabolic Panel 03/28/24 Range/Units 03:55 Sodium 136 (135-145) mmol/L Potassium 4.4 (3.5-5.5) mmol/L Chloride 100 (96-109) mmol/L Carbon Dioxide 25.0 (21.6-31.8) mmol/L BUN 20.3 (9.0-27.0) mg/dL Creatinine 0.8 (0.6-1.5) mg/dL Glucose 131 H (70-110) mg/dL Calcium 9.1 (8.7-10.3) mg/dL Current Medications Generic Name Dose Route Start Last Admin Trade Name Freq PRN Reason Stop Dose Admin Acetaminophen 650 mg 03/23/24 21:14 03/25/24 23:30 Acetaminophen Tab 325 Mg Tab PO 650 mg Q6HR PRN Administration Mild Pain or Fever > 100.5 Hydrocodone Bitart/Acetaminophen 1 each 03/23/24 21:14 03/28/24 06:58 Hydrocodone/Apap 5-325mg 1 Each Tab PO 1 each Q4HR PRN Administration Moderate Pain (Scale 4 to 6) Atorvastatin Calcium 20 mg 03/24/24 09:30 03/28/24 09:09 Atorvastatin 20 Mg Tab PO 20 mg DAILY ITA Administration Calcium Polycarbophil 625 mg 03/24/24 09:30 03/28/24 09:09 Calcium Polycarbophil 625 Mg Tab PO 625 mg DAILY ITA Administration Cholecalciferol 50 mcg 03/24/24 09:30 03/28/24 09:09 Cholecalciferol 25 Mcg (1000 Iu) Tablet PO 50 mcg DAILY ITA Administration Citalopram Hydrobromide 20 mg 03/24/24 09:30 03/28/24 09:09 Citalopram Hydrobromide 20 Mg Tab PO 20 mg DAILY ITA Administration Dextrose/Water 25 ml 03/24/24 06:28 Dextrose 50% Syringe 50 Ml IVP PER PROTOCOL PRN Hypoglycemia Protocol Dextrose/Water 50 ml 03/24/24 06:28 Dextrose 50% Syringe 50 Ml IVP PER PROTOCOL PRN Hypoglycemia Protocol Ibuprofen 400 mg 03/23/24 21:14 03/27/24 06:32 Ibuprofen 400 Mg Tab PO 400 mg Q6HR PRN Administration Mild Pain or Fever > 100.5 Insulin Aspart 0 unit 03/24/24 07:30 03/28/24 08:45 Insulin Aspart (Novolog) 100 Unit/Ml Vial SQ Not Given ACHS [facility] Protocol Linagliptin 5 mg 03/24/24 09:30 03/28/24 09:09 Linagliptin 5 Mg Tablet PO 5 mg DAILY ITA Administration Metoprolol Succinate 25 mg 03/24/24 09:30 03/28/24 09:09 Metoprolol Succinate (Er) 25 Mg Tab.Er.24h PO 25 mg DAILY ITA Administration Naloxone HCl 0.2 mg 03/23/24 21:14 Naloxone 0.4 Mg/Ml 1 Ml Vial IV Q2M PRN Opioid Reversal Ondansetron HCl 4 mg 03/23/24 21:14 03/27/24 15:29 Ondansetron 4 Mg/2 Ml Vial IVP 4 mg Q8HR PRN Administration Nausea And Vomiting Pantoprazole Sodium 40 mg 03/24/24 09:30 03/28/24 08:45 Pantoprazole 40 Mg Tablet PO Not Given AC-[id number] [facility] Intake and Output 03/27/24 03/28/24 03/28/24 22:59 06:59 14:59 Output Total 700 Balance -700 Output: Urine 700 Other: Voiding Method Incontinent External Catheter 03/28/24 03:55 03/28/24 03:55
[2024-03-28 11:26] LABS: Glucose,Whole Blood 148 mg/dL (70-110)
--- NOTE | 2024-03-28 13:06 | CA ---
Transthoracic Echo Report Name: Reva Street Age: 89 Gender: F : 1935 Exam Date: 03/28/2024 11:01 Exam Location: [facility] Ht (in): 64 Wt (lb): 140 Ordering Physician: Jenn Keller Attending/Referring Phys: [id number], Krishna Computer Science Professor Mona Rosenberg, MARY Procedure CPT: Indications: LV function, clearance, hx of MR and AR Cardiac Hx: Technical Quality: Fair Contrast 1: Total Dose (mL): Contrast 2: Total Dose (mL): MEASUREMENTS (Male / Female) Normal Values 2D ECHO LV Diastolic Diameter PLAX 3.9 cm 4.2 - 5.9 / 3.9 - 5.3 cm LV Systolic Diameter PLAX 2.3 cm IVS Diastolic Thickness 1.2 cm 0.6 - 1.0 / 0.6 - 0.9 cm LVPW Diastolic Thickness 1.5 cm 0.6 - 1.0 / 0.6 - 0.9 cm LV Relative Wall Thickness 0.7 RV Internal Dim ED PLAX 1.6 cm LA Systolic Diameter LX 4.5 cm 3.0 - 4.0 / 2.7 - 3.8 cm LV Diastolic Volume MOD BP 43.4 cm??? 67 - 155 / 56 - 104 cm??? LV Systolic Volume MOD BP 19.1 cm??? 22 - 58 / 19 - 49 cm??? LV Ejection Fraction MOD BP 56.1 % >= 55 % LV Cardiac Index MOD BP 1214.4 cm???/min???m??? LV Diastolic Volume MOD 4C 48.2 cm??? LV Systolic Volume MOD 4C 19.7 cm??? LV Ejection Fraction MOD 4C 59.1 % LV Cardiac Index MOD 4C 1422.2 cm???/min???m??? LV Diastolic Length 4C 5.7 cm LV Systolic Length 4C 5.0 cm LV Diastolic Volume MOD 2C 38.7 cm??? LV Systolic Volume MOD 2C 18.6 cm??? LV Ejection Fraction MOD 2C 52.0 % LV Cardiac Index MOD 2C 1003.8 cm???/min???m??? LV Diastolic Length 2C 5.7 cm LV Systolic Length 2C 5.0 cm M-MODE Aortic Root Diameter MM 2.9 cm LA Systolic Diameter MM 4.1 cm LA Ao Ratio MM 1.4 AV Cusp Separation MM 1.7 cm DOPPLER AV Peak Velocity 161.3 cm/s AV Peak Gradient 10.4 mmHg AV Mean Velocity 105.3 cm/s AV Mean Gradient 5.3 mmHg AV Velocity Time Integral 35.0 cm AI Peak Velocity 247.9 cm/s AI Peak Gradient 24.6 mmHg AI Pressure Half Time 823.8 ms LVOT Peak Velocity 77.5 cm/s LVOT Peak Gradient 2.4 mmHg LVOT Velocity Time Integral 17.5 cm Mitral E Point Velocity 66.4 cm/s Mitral A Point Velocity 56.7 cm/s Mitral E to A Ratio 1.2 MV Deceleration Time 279.7 ms MV E' Velocity 6.5 cm/s Mitral E to MV E' Ratio 10.2 TR Peak Velocity 261.6 cm/s TR Peak Gradient 27.4 mmHg Right Ventricular Systolic Press 37.4 mmHg FINDINGS Left Ventricle Left ventricular ejection fraction is estimated at 55-60 %. Normal left ventricular systolic function with no obvious regional wall motion abnormalities. Left ventricular cavity size normal.Moderately increased left ventricular wall thickness. Right Ventricle Normal right ventricular size and function. Mild pulmonary hypertension. Right Atrium Mild right atrial dilatation. Left Atrium Moderately increased left atrial diameter. Mitral Valve Structurally normal mitral valve. Mild to moderate mitral regurgitation. No mitral stenosis.mitral valve thickened. Aortic Valve Trileaflet aortic valve. No aortic stenosis. Mild aortic regurgitation.aortic valve sclerosis. Tricuspid Valve Structurally normal tricuspid valve. Mild tricuspid regurgitation. No tricuspid stenosis. Pulmonic Valve Pulmonic valve not well visualized. . No pulmonic stenosis. Pericardium No pericardial or pleural effusion.echo free space anterior to the right ventricle likely represents a fat pad. Aorta Normal size aortic root and proximal ascending aorta. CONCLUSIONS 1. Normal left ventricular size and systolic function 2. Mild to moderate mitral with mild aortic regurgitation 3. Mild tricuspid regurgitation and mild pulmonary hypertension Previewed by: Dr. Kee Lozano MD (Electronically Signed) Final Date: 28 March 2024 13:05
[2024-03-28 16:24] LABS: Glucose,Whole Blood 233 mg/dL (70-110)
[2024-03-28] MEDS: AZTREONAM 2 GM in SODIUM CHLORIDE 0.9% 100 ML IVPB SCH (17:49)
--- NOTE | 2024-03-28 20:27 | P.PN ---
Progress Note - Text Progress Note Date: 03/28/24 I reviewed the MRI imaging again this morning, also with my [employer] Drs. Corbin and Chai. It appears that some of the fibers of the patellar tendon are intact and that there isn't a complete rupture. Given the patient's advanced age, likely very poor quality of her tendon and bone and that her tendon doesn't appear to be completely torn, the consensus of myself and Chai Grider and Emerald is that this injury would be BEST treated non-surgically in hinged knee brace locked in extension with close clinical follow-up. We will order a brace. She can weight bear as tolerated in a brace. We will continue to follow closely.
[2024-03-28 21:03] LABS: Glucose,Whole Blood 220 mg/dL (70-110)
--- NOTE | 2024-03-28 21:26 | P.CONS ---
History of Present Illness - Reason for Consult Consult date: 03/28/24 UTI, multiple antibiotic allergies Requesting physician: Ernestina Avilez - Chief Complaint Burning urine and suprapubic pain x 1 day - History of Present Illness Patient is a 89-year-old female with a past medical history of again for diabetes mellitus and hypertension presented to the hospital 5 days ago after the patient did have a fall while up in the patient was going down her steps using the railing patient fell onto the right knee and has been compla ining of pain to the knee area patient has been evaluated by orthopedic surgery and did have a knee x-ray followed by the CT we will any fracture or dislocation of the right knee subsequently did have an MRI did shows evidence of patellar tendon with heterogeneous insertion on the tibia suspicious for complete avulsion injury to the patellar tendon and the patient was consulted for possible surgical repair and has been postponed this morning patient has been afebrile during this hospital stay and did have white count of 9.14 creatinine has been normal patient did have a significantly positive UA as she was complaining of significant urinary burning frequency and some suprapubic discomfort and also having urine retention requiring Jackson catheter placement as the patient did have multiple antibiotic allergies infectious he was consulted for further management of antibiotic for the UTI Review of Systems Positive point and negatives has been mentioned in the HPI, complete review of systems was performed and all other systems are negative Past Medical History Past Medical History: Diabetes Mellitus, Hypertension Additional Past Medical History / Comment(s): GERD, TIA 2013. Brain bleed 2023 History of Any Multi-Drug Resistant Organisms: None Reported Past Surgical History: Appendectomy, Cholecystectomy, Hysterectomy, Orthopedic Surgery Additional Past Surgical History / Comment(s): Breast lumpectomy(left), Cystosc ope, Left ankle pin and plate Past Psychological History: Anxiety, Depression Smoking Status: Never smoker Past Alcohol Use History: Occasional Past Drug Use History: None Reported Medications and Allergies Home Medications Medication Instructions Recorded Confirmed Type Metoprolol Succinate (ER) [Toprol 25 mg PO DAILY 05/04/14 03/24/24 History XL] Omeprazole [PriLOSEC] 20 mg PO DAILY 05/04/14 03/24/24 History Alendronate Sodium [Fosamax] 70 mg PO PERRIN 03/24/24 03/24/24 History Cholecalciferol [Vitamin D3 (25 50 mcg PO DAILY 03/24/24 03/24/24 History Mcg = 1000 Iu)] Citalopram Hydrobromide [CeleXA] 20 mg PO DAILY 03/24/24 03/24/24 History Clopidogrel [Plavix] 75 mg PO DAILY 03/24/24 03/24/24 History Dulaglutide [Trulicity] 0.75 mg SQ PERRIN 03/24/24 03/24/24 History Magnesium Oxide [Mag-Ox] 400 mg PO DAILY 03/24/24 03/24/24 History Rosuvastatin [Crestor] 10 mg PO DAILY 03/24/24 03/24/24 History calcium polycarbophiL [Fibercon] 625 mg PO DAILY 03/24/24 03/24/24 History lisinopriL 2.5 mg PO DAILY 03/24/24 03/24/24 History sitaGLIPtin PHOS/metFORMIN HCL 1 tab PO DAILY 03/24/24 03/24/24 History [Janumet 50-500 mg Tablet] Allergies Allergy/AdvReac Type Severity Reaction Status Date / Time cefuroxime Allergy Rash/Hives Verified 03/24/24 08:34 losartan [From Cozaar] Allergy Itching Verified 03/24/24 08:34 Penicillins Allergy Rash/Hives Verified 03/24/24 08:34 sulfamethoxazole Allergy Rash/Hives Verified 03/24/24 08:34 [From Bactrim] trimethoprim [From Bactrim] Allergy Rash/Hives Verified 03/24/24 08:34 amoxicillin AdvReac Rash/Hives Verified 03/24/24 08:34 cephalexin monohydrate AdvReac Swelling - Verified 03/24/24 08:34 [From Keflex] mouth/lips ciprofloxacin [From Cipro] AdvReac Joint Pain Verified 03/24/24 08:34 ciprofloxacin HCl AdvReac Joint Pain Verified 03/24/24 08:34 [From Cipro] clindamycin HCl AdvReac Diarrhea Verified 03/24/24 08:34 [From Cleocin] clindamycin palmitate HCl AdvReac Diarrhea Verified 03/24/24 08:34 [From Cleocin] clindamycin phosphate AdvReac Diarrhea Verified 03/24/24 08:34 [From Cleocin] clotrimazole AdvReac Itching Verified 03/24/24 08:34 doxycycline AdvReac Itching/Yeast/Gi Verified 03/24/24 08:34 Upset levofloxacin [From Levaquin] AdvReac joint pain Verified 03/24/24 08:34 meloxicam [From Mobic] AdvReac Nausea Verified 03/24/24 08:34 methylprednisolone AdvReac joint pain Verified 03/24/24 08:34 [From Medrol] metronidazole AdvReac Nausea Verified 03/24/24 08:34 Physical Exam Vitals: Vital Signs Temp Pulse Resp BP Pulse Ox 03/28/24 13:35 98.1 F 89 16 125/71 97 03/28/24 09:08 20 03/28/24 07:05 97.6 F 94 19 147/73 93 L 03/27/24 20:30 16 03/27/24 19:20 97.9 F 92 16 124/76 93 L Intake and Output 03/28/24 03/28/24 03/28/24 06:59 14:59 22:59 Output Total 900 Balance -900 Output: Urine 900 Straight 700 Other: Voiding Method Incontinent External Catheter GENERAL DESCRIPTION: Elderly female lying in bed, no distress. No tachypnea or accessory muscle of respiration use. HEENT: Shows Pallor , no scleral icterus. Oral mucous membrane is dry. No pharyngeal erythema or thrush NECK: Trachea central, no thyromegaly. LUNGS: Unlabored breathing. Clear to auscultation anteriorly. No wheeze or crackle. HEART: S1, S2, regular rate and rhythm. No loud murmur ABDOMEN: Soft, no tenderness , guarding or rigidity, no organomegaly EXTREMITIES: No edema of feet. SKIN: Bruises to the face and neck area NEUROLOGICAL: The patient is awake, alert, oriented x3, mood and affect normal. Results CBC & Chem 7: 03/28/24 03:55 03/28/24 03:55 Labs: Abnormal Lab Results - Last 24 Hours (Table) 03/27/24 03/27/24 03/27/24 Range/Units 16:43 22:05 23:59 RBC (4.10-5.20) X 10*6/uL Hgb (12.0-15.0) g/dL Hct (37.2-46.3) % MCHC (32.0-37.0) g/dL BUN/Creatinine Ratio (12.00-20.00) Ratio Glucose (70-110) mg/dL POC Glucose (mg/dL) 155 H 168 H (70-110) mg/dL Urine Appearance Cloudy H (Clear) Urine Blood Small H (Negative) Urine Nitrite Positive H (Negative) Ur Leukocyte Esterase Large H (Negative) Urine WBC 46 H (0-5) /hpf Calcium Oxalate Crystal Occasional H (None) /hpf Amorphous Sediment Rare H (None) /hpf Urine Bacteria Few H (None) /hpf Urine Yeast (Budding) Occasional H (None) /hpf 03/28/24 03/28/24 03/28/24 Range/Units 03:55 03:55 06:33 RBC 3.93 L (4.10-5.20) X 10*6/uL Hgb 11.0 L (12.0-15.0) g/dL Hct 35.5 L (37.2-46.3) % MCHC 31.0 L (32.0-37.0) g/dL BUN/Creatinine Ratio 25.38 H (12.00-20.00) Ratio Glucose 131 H (70-110) mg/dL POC Glucose (mg/dL) 157 H (70-110) mg/dL Urine Appearance (Clear) Urine Blood (Negative) Urine Nitrite (Negative) Ur Leukocyte Esterase (Negative) Urine WBC (0-5) /hpf Calcium Oxalate Crystal (None) /hpf Amorphous Sediment (None) /hpf Urine Bacteria (None) /hpf Urine Yeast (Budding) (None) /hpf 03/28/24 Range/Units 11:25 RBC (4.10-5.20) X 10*6/uL Hgb (12.0-15.0) g/dL Hct (37.2-46.3) % MCHC (32.0-37.0) g/dL BUN/Creatinine Ratio (12.00-20.00) Ratio Glucose (70-110) mg/dL POC Glucose (mg/dL) 148 H (70-110) mg/dL Urine Appearance (Clear) Urine Blood (Negative) Urine Nitrite (Negative) Ur Leukocyte Esterase (Negative) Urine WBC (0-5) /hpf Calcium Oxalate Crystal (None) /hpf Amorphous Sediment (None) /hpf Urine Bacteria (None) /hpf Urine Yeast (Budding) (None) /hpf Microbiology - Last 24 Hours (Table) 03/24/24 17:40 Gram Stain - Preliminary Knee - Right Body Fluid Culture - Preliminary Assessment and Plan (1) UTI (urinary tract infection) Current Visit: Yes Status: Acute Code(s): N39.0 - URINARY TRACT INFECTION, SITE NOT SPECIFIED SNOMED Code(s): 73823468 (2) Allergy to multiple antibiotics Current Visit: Yes Status: Acute Code(s): Z88.1 - ALLERGY STATUS TO OTHER ANTIBIOTIC AGENTS SNOMED Code(s): 821699428 Plan: 1patient with initial presentation to hospital with a fall and has been diagnosed with a injury to the right knee area and was considered for surgery which has been put on hold 2patient also complaining of significant burning of urine suprapubic pain and also have urine retention significant positive UA concerning for symptomatic UTI 3patient with multiple antibiotic ALLERGIES that would limit the number of antibiotic safe to use 4we will start the patient on Azactam 2 g every 8 hours Plan of care discussed with the patient as well as with the FACSIMILE OPERATOR for admitting team We will follow on clinical condition and cultures to further adjust medication if needed Thank you for this consultation we will follow the patient along with you Dictation was produced using [employer] dictation software. please excuse any grammatical, word or spelling errors. Time with Patient: Greater than 30
--- NOTE | 2024-03-28 21:59 | P.PN ---
Subjective Progress Note Date: 03/28/24 This is an 89-year-old female with medical history significant for diabetes mellitus, hypertension, acid reflux, TIA with no residuals back in 2013. Patient also had a brain bleed in 2023 secondary to a fall where she hit her head. Patient is maintained on Plavix daily. She comes into the hospital she had a fall on Thursday where she was walking up steps misstepped fell hit her head into the wall she came to the ER to be evaluated she had a had cervical spine CT that showed no acute intracranial process but she did have some right frontal superficial soft tissue swelling and there is some obvious bruising noted on her forehead and she has bilateral black eyes. Patient was discharged home from the ER however she comes back with a second fall on Thursday where she fell going down steps and landed on her knees. Since then she has had significant pain in her right knee with some obvious soft tissue swelling. Knee x-ray reveals no acute fracture or dislocation of the right knee however there is moderate to severe tricompartment degenerative change and spurring is seen. Patient had a follow-up CT of the right knee which again confirms a large sized suprapatellar joint effusion and patient is at this time unable to bear weight secondary to the pain. Orthopedics was consulted for further evaluation and possible aspiration we did hold her Plavix today. Will work reveals a white blood cell count of 13.9, sodium 135, BUN of 20 creatinine 0.94 AST of 37. Hemodynamically she is stable. 03/25/2024 Patient is seen in follow-up today currently sitting up in the chair and has worked with physical therapy. Patient continues to report significant right knee pain with orthopedics following. No fractures noted although there is significant swelling and patient reports she just had an aspiration of the knee which was sent for analysis. Approximately 27 cc taken. Patient is to be on a knee immobilizer and will order. Patient is being followed by case management currently awaiting to go to [facility] for continued strength and mobility. Insurance authorization has been submitted and pending at this time. Patient is afebrile with no reports of chest pain or shortness of breath. Patient will continue on pain regimen along with bowel regimen as needed and other home medications reviewed and resumed as appropriate. Patient does continue to have significant swelling which has slightly improved of bilateral eye orbits and significant ecchymosis and patient denies any visual disturbances. Patient does wear glasses. 03/26/2024 Patient is evaluated in follow-up. Has been working with physical therapy. Patient has knee immobilizer in place. Currently pending final cultures from the knee aspiration. Patient will be going for an MRI of her knee today. 03/27/2024 Patient evaluated today sitting up in the chair. No acute complaints. Knee MRI reveals complete rupture of the patellar tendon. Patient scheduled to undergo surgical repair of this tomorrow. Chest xray is negative for acute findings. EKG and Urinalysis ordered for preoperative clearance. Plavix has been on hold for sugical intervention. Cardiology consulted for preoperative clearance. Most recent echocardiogram in the system reveals an EF of 55-60% with mild to moderate aortic regurgitation. This was back in 2018. Patient is not having any chest pain or shortness of breath. Periorbital bruising is improving. 03/28/2024 Patient evaluated today resting in bed. As part of preoperative work up, uri nalysis was found to be significantly abnormal. Patient now reporting dysuria. Bladder was distended today and bladder scan did reveal greater than 900 mls in the urinary bladder. ID was consulted for antibiotic management as patient does have multiple drug allergies. Echocardiogram shows an EF 55-60%, mild to moderate mitral regurgitation and mild aortic regurgitation. Mild TR and mild pulmonary hypertension. Patient does have some systolic murmur. MRI was reviewed by orthopedics and felt patient does not need surgical intervention at this time recommending hinged kneed brace and patient can weight bear as tolerated. Patient will need subacute rehab on discharge. Review of systems: Constitutional: No reports of fatigue, fever, or chills Cardiovascular: No reports of chest pain or palpitations Respiratory: No reports of shortness of breath or cough GI: No reports of nausea, vomiting, or diarrhea : Reports dysuria and urinary retention Neurovascular: reports of generalized weakness with right knee pain and swelling but slightly improved All medications have been reviewed PHYSICAL EXAMINATION: GENERAL: The patient is alert and oriented x3, extremely pleasant, not in any acute distress. Well developed, elderly appearing HEENT: Pupils are round and equally reacting to light. EOMI. No scleral icterus. No conjunctival pallor. Normocephalic, atraumatic. No pharyngeal erythema. No thyromegaly. CARDIOVASCULAR: S1 and S2 present. No murmurs, rubs, or gallops. PULMONARY: Chest is clear to auscultation, no wheezing or crackles. ABDOMEN: Soft, nontender, distended, normoactive bowel sounds. No palpable organomegaly. MUSCULOSKELETAL: No joint swelling or deformity. EXTREMITIES: No cyanosis, clubbing, or pedal edema. Right knee swelling NEUROLOGICAL: Gross neurological examination did not reveal any focal deficits. Diffusely weak SKIN: No rashes. Patient has soft tissue swelling over the right forehead and bilateral black eyes, significant bruising to the left great toe extending down the foot and traveling other toes Assessment: Traumatic fall with soft tissue head trauma on the right forehead Right knee pain with large joint effusion post fall, status post aspiration per orthopedics rupture of patellar tendon on the right, MRI reveiewed by orthopedics and felt not a complete rupture. Acute UTI, not present on admission, no sepsis. Bruising and pain to the left great toe post fall Diabetes Mellitus type 2 Hypertension currently normotensive holding lisinopril Gastroesophageal reflux disease TIA in 2013 with no residual Hx of brain bleed in 2023 post fall Anxiety/Depression GI Prophylaxis DVT prophylaxis No Code Plan: Patient is status post needle aspiration at the bedside of the right knee joint effusion and specimen was sent, cultures are negative so far. No surgical intervention planned and orthopedics recommending hinged knee brace weight bearing as tolerated and patient may DC to subacute rehab. Patient initially evaluated by physical therapy and is recommending rehab with case management consulted and following has submitted for insurance authorization to [facility] on the [address]. Patient has been accepted pending authorization. Hold lisinopril for now and will follow-up on repeat labs. Plavix has been resumed ID consulted, patient has been started on IV aztreonam and urine culture pending Resume all other appropriate home medications Continue accuchecks ACHS and will adjust insulins accordingly The impression and plan of care has been dictated by Ernestina Avilez, Nurse Practitioner as directed. Dr. Chris MD I have performed a history and physical examination and medical decision making of this patient, discussed the same with the dictator, and agree with the dictators assessment and plan as written, documented as a scribe. Based on total visit time, I have performed more than 50% of this visit. Objective - Vital Signs Vital signs: Vital Signs Temp 97.6 F 03/28/24 07:05 Pulse 94 03/28/24 07:05 Resp 19 03/28/24 07:05 BP 147/73 03/28/24 07:05 Pulse Ox 93 L 03/28/24 07:05 FiO2 Intake & Output 03/27/24 03/28/24 03/28/24 18:59 06:59 18:59 Output Total 700 Balance -700 Output: Urine 700 Other: Voiding Method Incontinent Incontinent External Catheter External Catheter - Labs CBC & Chem 7: 03/28/24 03:55 03/28/24 03:55 Labs: Abnormal Lab Results - Last 24 Hours (Table) 03/27/24 03/27/24 03/27/24 Range/Units 11:40 16:43 22:05 RBC (4.10-5.20) X 10*6/uL Hgb (12.0-15.0) g/dL Hct (37.2-46.3) % MCHC (32.0-37.0) g/dL BUN/Creatinine Ratio (12.00-20.00) Ratio Glucose (70-110) mg/dL POC Glucose (mg/dL) 169 H 155 H 168 H (70-110) mg/dL Urine Appearance (Clear) Urine Blood (Negative) Urine Nitrite (Negative) Ur Leukocyte Esterase (Negative) Urine WBC (0-5) /hpf Calcium Oxalate Crystal (None) /hpf Amorphous Sediment (None) /hpf Urine Bacteria (None) /hpf Urine Yeast (Budding) (None) /hpf 03/27/24 03/28/24 03/28/24 Range/Units 23:59 03:55 03:55 RBC 3.93 L (4.10-5.20) X 10*6/uL Hgb 11.0 L (12.0-15.0) g/dL Hct 35.5 L (37.2-46.3) % MCHC 31.0 L (32.0-37.0) g/dL BUN/Creatinine Ratio 25.38 H (12.00-20.00) Ratio Glucose 131 H (70-110) mg/dL POC Glucose (mg/dL) (70-110) mg/dL Urine Appearance Cloudy H (Clear) Urine Blood Small H (Negative) Urine Nitrite Positive H (Negative) Ur Leukocyte Esterase Large H (Negative) Urine WBC 46 H (0-5) /hpf Calcium Oxalate Crystal Occasional H (None) /hpf Amorphous Sediment Rare H (None) /hpf Urine Bacteria Few H (None) /hpf Urine Yeast (Budding) Occasional H (None) /hpf 03/28/24 Range/Units 06:33 RBC (4.10-5.20) X 10*6/uL Hgb (12.0-15.0) g/dL Hct (37.2-46.3) % MCHC (32.0-37.0) g/dL BUN/Creatinine Ratio (12.00-20.00) Ratio Glucose (70-110) mg/dL POC Glucose (mg/dL) 157 H (70-110) mg/dL Urine Appearance (Clear) Urine Blood (Negative) Urine Nitrite (Negative) Ur Leukocyte Esterase (Negative) Urine WBC (0-5) /hpf Calcium Oxalate Crystal (None) /hpf Amorphous Sediment (None) /hpf Urine Bacteria (None) /hpf Urine Yeast (Budding) (None) /hpf Microbiology - Last 24 Hours (Table) 03/24/24 17:40 Gram Stain - Preliminary Knee - Right Body Fluid Culture - Preliminary Assessment and Plan Time with Patient: Less than 30
[2024-03-29 06:21] LABS: Glucose,Whole Blood 151 mg/dL (70-110)
[2024-03-29] MEDS: CLOPIDOGREL 75 MG TAB PO SCH (09:30)
--- NOTE | 2024-03-29 09:31 | XR ---
EXAMINATION TYPE: XR lumbar spine 2 or 3V DATE OF EXAM: 03/29/2024 9:25 AM COMPARISON: None. CLINICAL INDICATION: Female, 89 years old with history of fall, LE numbness, pain TECHNIQUE: 2 view(s) obtained. FINDINGS: There are 5 lumbar-type vertebral bodies. Pedicles are intact. Scoliosis is present. Minimal grade 1 spondylolisthesis of L4 internal 5 is present. Degenerative disc changes are present L4-5 and L5-S1. There is narrowing of disc height at L2-3. Vertebral body heights are preserved IMPRESSION: 1. Degenerative disc changes L2-3, L4-5, L5-S1. 2. Mild grade 1 spondylolisthesis of L4 anteriorly on L5. 3. Scoliosis [facility], , 03/29/2024 9:28 AM
--- NOTE | 2024-03-29 09:35 | P.PN ---
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 Patient follows in the office with Dr. Walker. We have been asked to see the patient in consultation for cardiac clearance. Patient examined at the bedside. Patient presented to the hospital after sustaining a fall at home. She states on Thursday she was walking up the stairs when her left knee gave out and she fell hitting her face. She states on Thursday she was going down the stairs and her right knee gave out and she again fell. She denies losing consciousness. Patient denies having any chest pain or pressure. She denies any shortness of breath. Patient is scheduled to undergo right patellar tendon repair today with orthopedics. DIAGNOSTICS: - EKG reveals sinus mechanism with no signs of acute ischemia. - Chest xray negative for acute process - Laboratory data: WBC 9.14. Hemoglobin 11.0. Platelet count 221. Sodium 136. Potassium 4.4. BUN 20. Creatinine 0.8. - Current home cardiac medications include rosuvastatin 10 mg daily, Plavix 75 mg daily, metoprolol succinate 25 mg daily, lisinopril 2.5 mg daily. - Most recent echocardiogram obtained in July 2021 revealing normal EF, moderate MR, mild AR -Patient underwent Lexiscan stress test in 2019 which revealed small apical ischemia 03/29/2024 Patient examined this morning at the bedside. Patient denies any chest pain or pressure. She denies any shortness of breath. Echocardiogram completed revealing ejection fraction 55 to 60%, no obvious regional wall motion abno rmalities, mild pulm hypertension, mild to moderate MR, mild AR, mild TR. Patient surgery was canceled yesterday as orthopedics apparently reviewed MRI and now stating patient does not have a complete rupture and will now be treating nonsurgically with a hinged knee brace. PHYSICAL EXAM: VITAL SIGNS: Reviewed. GENERAL: Well-developed in no acute distress. HEENT: Patient with significant bruising. Head is normocephalic. Pupils are equal, round. Sclerae anicteric. Mucous membranes of the mouth are moist. Neck supple. No JVD or thyromegaly LUNGS: Respirations even and unlabored. Lungs essentially clear to auscultation bilaterally. HEART: Regular rate and rhythm. S1 and S2 heard. Systolic murmur noted. Diastolic murmur noted. ABDOMEN: Soft. Nondistended. Nontender. EXTREMITIES: Normal range of motion. No clubbing or cyanosis. Peripheral pulses intact. No lower extremity edema NEUROLOGIC: Awake and alert. Oriented x 3. ASSESSMENT: Status post mechanical fall without syncope Partial rupture of right patellar tendon Hypertension Hyperlipidemia Diabetes Valvular heart disease including mild TR, mild to moderate MR and mild AR Reported CVA/TIA, 2013, on Plavix outpatient PLAN: Continue current cardiac medications No further inpatient recommendations from a cardiac standpoint We will sign off. Please reconsult if needed. Nurse practitioner note has been reviewed by physician. Signing provider agrees with the documented findings, assessment, and plan of care documented by CMV DRIVER as a scribe. Objective - Vital Signs Vital signs: Vital Signs Temp 98.8 F 03/29/24 07:41 Pulse 91 03/29/24 07:41 Resp 18 03/29/24 07:41 BP 126/72 03/29/24 07:41 Pulse Ox 92 L 03/29/24 07:41 FiO2 Intake & Output 03/28/24 03/29/24 03/29/24 18:59 06:59 18:59 Intake Total 300 Output Total 900 650 Balance -600 -650 Intake: Oral 300 Output: Urine 900 650 Straight 700 650 Post Void Residual 0 Other: Voiding Method Incontinent External Catheter # Voids 2 1 - Labs CBC & Chem 7: 03/28/24 03:55 03/28/24 03:55 Labs: Abnormal Lab Results - Last 24 Hours (Table) 03/28/24 03/28/24 03/28/24 Range/Units 03:55 11:25 16:22 RBC 3.93 L (4.10-5.20) X 10*6/uL Hgb 11.0 L (12.0-15.0) g/dL Hct 35.5 L (37.2-46.3) % MCHC 31.0 L (32.0-37.0) g/dL POC Glucose (mg/dL) 148 H 233 H (70-110) mg/dL 03/28/24 03/29/24 Range/Units 20:58 06:20 RBC (4.10-5.20) X 10*6/uL Hgb (12.0-15.0) g/dL Hct (37.2-46.3) % MCHC (32.0-37.0) g/dL POC Glucose (mg/dL) 220 H 151 H (70-110) mg/dL Microbiology - Last 24 Hours (Table) 03/24/24 17:40 Gram Stain - Preliminary Knee - Right Body Fluid Culture - Preliminary
[2024-03-29 10:48] LABS: African American GFR (CKD) 79 (>60 ml/min/1.73 sqM); Anion Gap 4 mmol/L; Blood Urea Nitrogen 24 mg/dL (7-17); Calcium 9.1 mg/dL (8.4-10.2); Carbon Dioxide 30 mmol/L (22-30); Chloride 101 mmol/L (98-107); Glucose 152 mg/dL (74-99); Non-African American GFR(CKD) 69 (>60 ml/min/1.73 sqM); Potassium 4.2 mmol/L (3.5-5.1); Sodium 135 mmol/L (137-145)
[2024-03-29 11:54] LABS: Glucose,Whole Blood 168 mg/dL (70-110)
--- NOTE | 2024-03-29 12:25 | P.PN ---
Progress Note - Text Progress Note Date: 03/29/24 I saw the patient along with her partners. She feels like she has had some numbness and tingling in her lower extremities. She does not have acute neurologic deficit in her lower extremities but does have some chronic degenerative changes at her lumbar spine. I do not have any plan for surgical intervention and I do not think that we need advanced imaging for her lumbar spine at this point. She should continue with physical therapy for mobilization transfers and ambulation as directed for her right lower extremity injury. It is okay for her to increase her mobilization from a spine standpoint. I would plan to see her back on outpatient basis regarding her lumbar spine if she were to require further therapy, imaging, or interventional treatment. I explained this to her and answered her questions.
--- NOTE | 2024-03-29 16:14 | P.PN ---
Subjective Progress Note Date: 03/29/24 This is an 89-year-old female with medical history significant for diabetes mellitus, hypertension, acid reflux, TIA with no residuals back in 2013. Patient also had a brain bleed in 2023 secondary to a fall where she hit her head. Patient is maintained on Plavix daily. She comes into the hospital she had a fall on Thursday where she was walking up steps misstepped fell hit her head into the wall she came to the ER to be evaluated she had a had cervical spine CT that showed no acute intracranial process but she did have some right frontal superficial soft tissue swelling and there is some obvious bruising noted on her forehead and she has bilateral black eyes. Patient was discharged home from the ER however she comes back with a second fall on Thursday where she fell going down steps and landed on her knees. Since then she has had significant pain in her right knee with some obvious soft tissue swelling. Knee x-ray reveals no acute fracture or dislocation of the right knee however there is moderate to severe tricompartment degenerative change and spurring is seen. Patient had a follow-up CT of the right knee which again confirms a large sized suprapatellar joint effusion and patient is at this time unable to bear weight secondary to the pain. Orthopedics was consulted for further evaluation and possible aspiration we did hold her Plavix today. Will work reveals a white blood cell count of 13.9, sodium 135, BUN of 20 creatinine 0.94 AST of 37. Hemodynamically she is stable. 03/25/2024 Patient is seen in follow-up today currently sitting up in the chair and has worked with physical therapy. Patient continues to report significant right knee pain with orthopedics following. No fractures noted although there is significant swelling and patient reports she just had an aspiration of the knee which was sent for analysis. Approximately 27 cc taken. Patient is to be on a knee immobilizer and will order. Patient is being followed by case management currently awaiting to go to [facility] for continued strength and mobility. Insurance authorization has been submitted and pending at this time. Patient is afebrile with no reports of chest pain or shortness of breath. Patient will continue on pain regimen along with bowel regimen as needed and other home medications reviewed and resumed as appropriate. Patient does continue to have significant swelling which has slightly improved of bilateral eye orbits and significant ecchymosis and patient denies any visual disturbances. Patient does wear glasses. 03/26/2024 Patient is evaluated in follow-up. Has been working with physical therapy. Patient has knee immobilizer in place. Currently pending final cultures from the knee aspiration. Patient will be going for an MRI of her knee today. 03/27/2024 Patient evaluated today sitting up in the chair. No acute complaints. Knee MRI reveals complete rupture of the patellar tendon. Patient scheduled to undergo surgical repair of this tomorrow. Chest xray is negative for acute findings. EKG and Urinalysis ordered for preoperative clearance. Plavix has been on hold for sugical intervention. Cardiology consulted for preoperative clearance. Most recent echocardiogram in the system reveals an EF of 55-60% with mild to moderate aortic regurgitation. This was back in 2018. Patient is not having any chest pain or shortness of breath. Periorbital bruising is improving. 03/28/2024 Patient evaluated today resting in bed. As part of preoperative work up, uri nalysis was found to be significantly abnormal. Patient now reporting dysuria. Bladder was distended today and bladder scan did reveal greater than 900 mls in the urinary bladder. ID was consulted for antibiotic management as patient does have multiple drug allergies. Echocardiogram shows an EF 55-60%, mild to moderate mitral regurgitation and mild aortic regurgitation. Mild TR and mild pulmonary hypertension. Patient does have some systolic murmur. MRI was reviewed by orthopedics and felt patient does not need surgical intervention at this time recommending hinged kneed brace and patient can weight bear as tolerated. Patient will need subacute rehab on discharge. 03/29/2024 Patient is evaluated today in follow up on the medical resting in bed. Patient reports increased fatigue today. Indwelling catheter was placed for retention. Urine culture pending. Continues on IV azactam. ID following. Sodium today 135, BUN 24, creatinine 0.78. Review of systems: Constitutional: No reports of fatigue, fever, or chills Cardiovascular: No reports of chest pain or palpitations Respiratory: No reports of shortness of breath or cough GI: No reports of nausea, vomiting, or diarrhea : Reports dysuria and urinary retention Neurovascular: reports of generalized weakness with right knee pain and swelling but slightly improved All medications have been reviewed PHYSICAL EXAMINATION: GENERAL: The patient is alert and oriented x3, extremely pleasant, not in any acute distress. Well developed, elderly appearing HEENT: Pupils are round and equally reacting to light. EOMI. No scleral icterus. No conjunctival pallor. Normocephalic, atraumatic. No pharyngeal erythema. No thyromegaly. CARDIOVASCULAR: S1 and S2 present. No murmurs, rubs, or gallops. PULMONARY: Chest is clear to auscultation, no wheezing or crackles. ABDOMEN: Soft, nontender, distended, normoactive bowel sounds. No palpable organomegaly. MUSCULOSKELETAL: No joint swelling or deformity. EXTREMITIES: No cyanosis, clubbing, or pedal edema. Right knee swelling NEUROLOGICAL: Gross neurological examination did not reveal any focal deficits. Diffusely weak SKIN: No rashes. Patient has soft tissue swelling over the right forehead and bilateral black eyes, significant bruising to the left great toe extending down the foot and traveling other toes Assessment: Traumatic fall with soft tissue head trauma on the right forehead Right knee pain with large joint effusion post fall, status post aspiration per orthopedics rupture of patellar tendon on the right, MRI reveiewed by orthopedics and felt not a complete rupture. Acute UTI, not present on admission, no sepsis. Bruising and pain to the left great toe post fall Diabetes Mellitus type 2 Hypertension currently normotensive holding lisinopril Gastroesophageal reflux disease TIA in 2013 with no residual Hx of brain bleed in 2023 post fall Anxiety/Depression GI Prophylaxis DVT prophylaxis No Code Plan: Patient is status post needle aspiration at the bedside of the right knee joint effusion and specimen was sent, cultures are negative so far. No surgical intervention planned and orthopedics recommending hinged knee brace weight bearing as tolerated and patient may DC to subacute rehab. Patient initially evaluated by physical therapy and is recommending rehab with case management consulted and following has submitted for insurance authorizati on to [email or web address]. Patient has been accepted pending authorization. Hold lisinopril for now and will follow-up on repeat labs. Plavix has been resumed ID consulted, patient has been started on IV aztreonam and urine culture pending Continue indwelling thurston catheter Start normal saline at 75 mls/hr. Resume all other appropriate home medications Continue accuchecks ACHS and will adjust insulins accordingly The impression and plan of care has been dictated by Ernestina Avilez, Nurse Practitioner as directed. Dr. Chris MD I have performed a history and physical examination and medical decision making of this patient, discussed the same with the dictator, and agree with the dictators assessment and plan as written, documented as a scribe. Based on total visit time, I have performed more than 50% of this visit. Objective - Vital Signs Vital signs: Vital Signs Temp 98.2 F 03/29/24 14:45 Pulse 88 03/29/24 14:45 Resp 18 03/29/24 14:45 BP 103/60 03/29/24 14:45 Pulse Ox 93 L 03/29/24 14:45 FiO2 Intake & Output 03/28/24 03/29/24 03/29/24 18:59 06:59 18:59 Intake Total 300 100 Output Total 662 481 0667 Balance -600 -650 -1302 Intake: Oral 300 100 Output: Urine 591 783 8347 Straight 700 650 Post Void Residual 0 Stool 2 Other: Voiding Method Incontinent Indwelling Catheter External Catheter External Catheter # Voids 2 1 - Labs CBC & Chem 7: 03/28/24 03:55 03/29/24 10:10 Labs: Abnormal Lab Results - Last 24 Hours (Table) 03/28/24 03/28/24 03/29/24 Range/Units 16:22 20:58 06:20 Sodium (137-145) mmol/L BUN (7-17) mg/dL Glucose (74-99) mg/dL POC Glucose (mg/dL) 233 H 220 H 151 H (70-110) mg/dL 03/29/24 03/29/24 Range/Units 10:10 11:49 Sodium 135 L (137-145) mmol/L BUN 24 H (7-17) mg/dL Glucose 152 H (74-99) mg/dL POC Glucose (mg/dL) 168 H (70-110) mg/dL Microbiology - Last 24 Hours (Table) 03/28/24 12:35 Urine Culture - Preliminary Urine,Clean Catch Gram Neg Bacilli 03/24/24 17:40 Gram Stain - Preliminary Knee - Right Body Fluid Culture - Preliminary Assessment and Plan Time with Patient: Less than 30
[2024-03-29 17:01] LABS: Glucose,Whole Blood 182 mg/dL (70-110)
[2024-03-29] MEDS: SODIUM CHLORIDE 0.9% 1,000 ML IV SCH (17:55)
[2024-03-29] MEDS: HEPARIN SODIUM,PORCINE 5,000 UNIT/ML 1 ML VIAL SQ SCH (21:42)
[2024-03-29 21:46] LABS: Glucose,Whole Blood 172 mg/dL (70-110)
[2024-03-30 05:36] LABS: African American GFR (CKD) >90 (>60 ml/min/1.73 sqM); Anion Gap 8 mmol/L; Blood Urea Nitrogen 22 mg/dL (7-17); Carbon Dioxide 24 mmol/L (22-30); Chloride 101 mmol/L (98-107); Glucose 136 mg/dL (74-99); Non-African American GFR(CKD) 80 (>60 ml/min/1.73 sqM); Potassium 4.3 mmol/L (3.5-5.1); Sodium 133 mmol/L (137-145)
[2024-03-30 06:25] LABS: Glucose,Whole Blood 132 mg/dL (70-110)
--- NOTE | 2024-03-30 07:46 | P.PN ---
Subjective Progress Note Date: 03/29/24 Principal diagnosis: Reason for follow-up is UTI, multiple antibiotic allergies Patient is a 89-year-old female with a past medical history of again for diabetes mellitus and hypertension presented to the hospital after the patient did have a fall, patient did have a urinary retention urinary burning diagnosed with UTI with multiple antibiotic allergies prompting this consultation. On today's evaluation that is 03/29/2023, Patient is afebrile this morning patient denies having any chest pain shortness of breath or cough, the patient is currently on room air, patient denies any abdominal pain no diarrhea no nausea no vomiting. Patient creatinine 0.70 no CBC was done today urine is growing gram-negative bacilli Objective - Vital Signs Vital signs: Vital Signs Temp 98.2 F 03/29/24 14:45 Pulse 88 03/29/24 14:45 Resp 18 03/29/24 14:45 BP 103/60 03/29/24 14:45 Pulse Ox 93 L 03/29/24 14:45 FiO2 Intake & Output 03/28/24 03/29/24 03/29/24 18:59 06:59 18:59 Intake Total 300 100 Output Total 071 915 5663 Balance -600 -650 -1302 Intake: Oral 300 100 Output: Urine 326 931 8376 Straight 700 650 Post Void Residual 0 Stool 2 Other: Voiding Method Incontinent Indwelling Catheter External Catheter External Catheter # Voids 2 1 - Exam GENERAL DESCRIPTION: An elderly female lying in bed in no distress RESPIRATORY SYSTEM: Unlabored breathing , decreased breath sounds at bases HEART: S1 S2 regular rate and rhythm , ABDOMEN: Soft , no tenderness EXTREMITIES: No edema feet - Labs CBC & Chem 7: 03/28/24 03:55 03/30/24 04:42 Labs: Abnormal Lab Results - Last 24 Hours (Table) 03/28/24 03/28/24 03/29/24 Range/Units 16:22 20:58 06:20 Sodium (137-145) mmol/L BUN (7-17) mg/dL Glucose (74-99) mg/dL POC Glucose (mg/dL) 233 H 220 H 151 H (70-110) mg/dL 03/29/24 03/29/24 Range/Units 10:10 11:49 Sodium 135 L (137-145) mmol/L BUN 24 H (7-17) mg/dL Glucose 152 H (74-99) mg/dL POC Glucose (mg/dL) 168 H (70-110) mg/dL Microbiology - Last 24 Hours (Table) 03/28/24 12:35 Urine Culture - Preliminary Urine,Clean Catch Gram Neg Bacilli 03/24/24 17:40 Gram Stain - Preliminary Knee - Right Body Fluid Culture - Preliminary Assessment and Plan (1) UTI (urinary tract infection) Current Visit: Yes Status: Acute Code(s): N39.0 - URINARY TRACT INFECTION, SITE NOT SPECIFIED SNOMED Code(s): 25871503 (2) Allergy to multiple antibiotics Current Visit: Yes Status: Acute Code(s): Z88.1 - ALLERGY STATUS TO OTHER ANTIBIOTIC AGENTS SNOMED Code(s): 162448833 Plan: 1patient with initial presentation to hospital with a fall and has been diagnosed with a injury to the right knee area and was considered for surgery which has been put on hold 2patient also complaining of significant burning of urine suprapubic pain and also have urine retention significant positive UA concerning for symptomatic UTI 3patient with multiple antibiotic ALLERGIES that would limit the number of antibiotic safe to use 4patient urine is growing gram-negative bacilli with ID sensitivities pending patient will be treated her with Azactam 2 g every 8 hours while waiting for the culture to finalize Dictation was produced using [employer] dictation software. please excuse any grammatical, word or spelling errors. Time with Patient: Less than 30
[2024-03-30 10:23] LABS: Basophils # (A) 0.03 X 10*3/uL (0.00-0.10); Basophils % (A) 0.4 %; Eosinophils # (A) 0.24 X 10*3/uL (0.04-0.35); Eosinophils % (A) 3.5 %; HCT 30.4 % (37.2-46.3); HGB 9.8 g/dL (12.0-15.0); Lymphocytes # (A) 0.75 X 10*3/uL (0.90-5.00); MCH 29.4 pg (27.0-32.0); MCHC 32.2 g/dL (32.0-37.0); MCV 91.3 FL (80.0-97.0); Mean Platelet Volume 11.8 FL (9.5-12.2); Monocytes # (A) 0.72 X 10*3/uL (0.20-1.00); Monocytes % (A) 10.6 %; NRBC Per 100 WBC 0 X 10*3/uL (0.00-0.01); Neutrophils # (A) 4.99 X 10*3/uL (1.80-7.70); Neutrophils % (A) 73.6 %; Platelet Count 186 X 10*3/uL (140-440); RBC 3.33 X 10*6/uL (4.10-5.20); RDW 13.4 % (11.5-14.5); WBC 6.79 X 10*3/uL (4.50-10.00)
[2024-03-30 11:57] LABS: Glucose,Whole Blood 207 mg/dL (70-110)
[2024-03-30 14:32] VITALS: BMI 24.0
[2024-03-30 16:52] LABS: Glucose,Whole Blood 111 mg/dL (70-110)
--- NOTE | 2024-03-30 20:13 | P.PN ---
Subjective Progress Note Date: 03/30/24 This is an 89-year-old female with medical history significant for diabetes mellitus, hypertension, acid reflux, TIA with no residuals back in 2013. Patient also had a brain bleed in 2023 secondary to a fall where she hit her head. Patient is maintained on Plavix daily. She comes into the hospital she had a fall on Thursday where she was walking up steps misstepped fell hit her head into the wall she came to the ER to be evaluated she had a had cervical spine CT that showed no acute intracranial process but she did have some right frontal superficial soft tissue swelling and there is some obvious bruising noted on her forehead and she has bilateral black eyes. Patient was discharged home from the ER however she comes back with a second fall on Thursday where she fell going down steps and landed on her knees. Since then she has had significant pain in her right knee with some obvious soft tissue swelling. Knee x-ray reveals no acute fracture or dislocation of the right knee however there is moderate to severe tricompartment degenerative change and spurring is seen. Patient had a follow-up CT of the right knee which again confirms a large sized suprapatellar joint effusion and patient is at this time unable to bear weight secondary to the pain. Orthopedics was consulted for further evaluation and possible aspiration we did hold her Plavix today. Will work reveals a white blood cell count of 13.9, sodium 135, BUN of 20 creatinine 0.94 AST of 37. Hemodynamically she is stable. 03/25/2024 Patient is seen in follow-up today currently sitting up in the chair and has worked with physical therapy. Patient continues to report significant right knee pain with orthopedics following. No fractures noted although there is significant swelling and patient reports she just had an aspiration of the knee which was sent for analysis. Approximately 27 cc taken. Patient is to be on a knee immobilizer and will order. Patient is being followed by case management currently awaiting to go to [facility] for continued strength and mobility. Insurance authorization has been submitted and pending at this time. Patient is afebrile with no reports of chest pain or shortness of breath. Patient will continue on pain regimen along with bowel regimen as needed and other home medications reviewed and resumed as appropriate. Patient does continue to have significant swelling which has slightly improved of bilateral eye orbits and significant ecchymosis and patient denies any visual disturbances. Patient does wear glasses. 03/26/2024 Patient is evaluated in follow-up. Has been working with physical therapy. Patient has knee immobilizer in place. Currently pending final cultures from the knee aspiration. Patient will be going for an MRI of her knee today. 03/27/2024 Patient evaluated today sitting up in the chair. No acute complaints. Knee MRI reveals complete rupture of the patellar tendon. Patient scheduled to undergo surgical repair of this tomorrow. Chest xray is negative for acute findings. EKG and Urinalysis ordered for preoperative clearance. Plavix has been on hold for sugical intervention. Cardiology consulted for preoperative clearance. Most recent echocardiogram in the system reveals an EF of 55-60% with mild to moderate aortic regurgitation. This was back in 2018. Patient is not having any chest pain or shortness of breath. Periorbital bruising is improving. 03/28/2024 Patient evaluated today resting in bed. As part of preoperative work up, uri nalysis was found to be significantly abnormal. Patient now reporting dysuria. Bladder was distended today and bladder scan did reveal greater than 900 mls in the urinary bladder. ID was consulted for antibiotic management as patient does have multiple drug allergies. Echocardiogram shows an EF 55-60%, mild to moderate mitral regurgitation and mild aortic regurgitation. Mild TR and mild pulmonary hypertension. Patient does have some systolic murmur. MRI was reviewed by orthopedics and felt patient does not need surgical intervention at this time recommending hinged kneed brace and patient can weight bear as tolerated. Patient will need subacute rehab on discharge. 03/29/2024 Patient is evaluated today in follow up on the medical resting in bed. Patient reports increased fatigue today. Indwelling catheter was placed for retention. Urine culture pending. Continues on IV azactam. ID following. Sodium today 135, BUN 24, creatinine 0.78. 03/30/2024 Patient is evaluated today in follow up on the medical unit. Patient currently sitting up in the chair with visitor at the bedside. No acute complaints overnight. She is not having any further reports of dysuria. Indwelling catheter remains in place with adequate urine output. Received normal saline infusion overnight and now to KVO. Urine culture shows gray sensitive e coli and blood culture negative so far. Patient remains on IV azactam and ID following pending discharge antibiotic recommendations. Discussed with patient we will repeat labs in the AM and plan for discharge to [facility] tomorrow. Patient is agreeable to this plan. Indwelling catheter will remain in place until Thursday for voiding trial. White blood cell count 6.79, hgb 9.8, sodium 133, BUN 22, creatinine 0.66. Patient was reporting numbness in bilateral lower extremities had lumbar xray completed which reveals degenerative disc changes L2-3, L4-5, and L5-S1. Mi ld grade 1 spondylolisthesis of L4 anteriorly on L5. Scoliosis. Review of systems: Constitutional: No reports of fatigue, fever, or chills Cardiovascular: No reports of chest pain or palpitations Respiratory: No reports of shortness of breath or cough GI: No reports of nausea, vomiting, or diarrhea : Reports dysuria and urinary retention Neurovascular: reports of generalized weakness with right knee pain and swelling but slightly improved All medications have been reviewed PHYSICAL EXAMINATION: GENERAL: The patient is alert and oriented x3, extremely pleasant, not in any acute distress. Well developed, elderly appearing HEENT: Pupils are round and equally reacting to light. EOMI. No scleral icterus. No conjunctival pallor. Normocephalic, atraumatic. No pharyngeal erythema. No thyromegaly. CARDIOVASCULAR: S1 and S2 present. No murmurs, rubs, or gallops. PULMONARY: Chest is clear to auscultation, no wheezing or crackles. ABDOMEN: Soft, nontender, distended, normoactive bowel sounds. No palpable organomegaly. MUSCULOSKELETAL: No joint swelling or deformity. EXTREMITIES: No cyanosis, clubbing, or pedal edema. Right knee swelling NEUROLOGICAL: Gross neurological examination did not reveal any focal deficits. Diffusely weak SKIN: No rashes. Patient has soft tissue swelling over the right forehead and bilateral black eyes, significant bruising to the left great toe extending down the foot and traveling other toes Assessment: Traumatic fall with soft tissue head trauma on the right forehead Right knee pain with large joint effusion post fall, status post aspiration per orthopedics rupture of patellar tendon on the right, MRI reveiewed by orthopedics and felt not a complete rupture. Acute UTI, not present on admission, no sepsis. Bruising and pain to the left great toe post fall Diabetes Mellitus type 2 Hypertension currently normotensive holding lisinopril Gastroesophageal reflux disease TIA in 2013 with no residual Hx of brain bleed in 2023 post fall Anxiety/Depression GI Prophylaxis DVT prophylaxis No Code Plan: Patient is status post needle aspiration at the bedside of the right knee joint effusion and specimen was sent, cultures are negative so far. No surgical intervention planned and orthopedics recommending hinged knee brace weight bearing as tolerated and patient may DC to subacute rehab. Patient is pending the correct brace from [facility]. Patient initially evaluated by physical therapy and is recommending rehab with case management consulted and following has submitted for insurance authorization to [facility] on the [facility]. Patient has been accepted and we have insurance authorization for discharge. Hold lisinopril for now and will follow-up on repeat labs. Plavix has been resumed ID consulted, patient remains on IV aztreonam and final cultures in place. Continue indwelling thurston catheter Fluids to KVO Continue accuchecks ACHS and will adjust insulins accordingly Discharge to [facility] tomorrow The impression and plan of care has been dictated by Ernestina Avilez, Nurse Practitioner as directed. Dr. Chris MD I have performed a history and physical examination and medical decision making of this patient, discussed the same with the dictator, and agree with the dictators assessment and plan as written, documented as a scribe. Based on total visit time, I have performed more than 50% of this visit. Objective - Vital Signs Vital signs: Vital Signs Temp 97.5 F L 03/30/24 14:39 Pulse 78 03/30/24 14:39 Resp 16 03/30/24 14:39 BP 113/65 03/30/24 14:39 Pulse Ox 97 03/30/24 14:39 FiO2 Intake & Output 03/30/24 03/30/24 03/31/24 06:59 18:59 06:59 Intake Total 360 Output Total 1000 325 Balance -640 -325 Weight 63.503 kg Intake: Blood Product 360 Output: Urine 1000 325 Other: Voiding Method Indwelling Catheter Indwelling Catheter Indwelling Catheter # Voids 650 - Labs CBC & Chem 7: 03/30/24 07:03 03/30/24 04:42 Labs: Abnormal Lab Results - Last 24 Hours (Table) 03/29/24 03/30/24 03/30/24 Range/Units 21:45 04:42 06:23 RBC (4.10-5.20) X 10*6/uL Hgb (12.0-15.0) g/dL Hct (37.2-46.3) % Immature Gran # (0.00-0.04) X 10*3/uL Lymphocytes # (0.90-5.00) X 10*3/uL Sodium 133 L (137-145) mmol/L BUN 22 H (7-17) mg/dL Glucose 136 H (74-99) mg/dL POC Glucose (mg/dL) 172 H 132 H (70-110) mg/dL 03/30/24 03/30/24 03/30/24 Range/Units 07:03 11:55 16:46 RBC 3.33 L (4.10-5.20) X 10*6/uL Hgb 9.8 L (12.0-15.0) g/dL Hct 30.4 L (37.2-46.3) % Immature Gran # 0.06 H (0.00-0.04) X 10*3/uL Lymphocytes # 0.75 L (0.90-5.00) X 10*3/uL Sodium (137-145) mmol/L BUN (7-17) mg/dL Glucose (74-99) mg/dL POC Glucose (mg/dL) 207 H 111 H (70-110) mg/dL Microbiology - Last 24 Hours (Table) 03/29/24 10:10 Blood Culture - Preliminary Blood 03/28/24 12:35 Urine Culture - Final Urine,Clean Catch Escherichia coli Assessment and Plan Time with Patient: Less than 30
[2024-03-30 20:28] LABS: Glucose,Whole Blood 190 mg/dL (70-110)
[2024-03-30] MEDS: NITROFURANTOIN MONOHYD/M-CRYST 100 MG CAP PO SCH (21:22)
[2024-03-31 01:52] VITALS: RESP 18
[2024-03-31 06:27] LABS: Glucose,Whole Blood 120 mg/dL (70-110)
[2024-03-31 08:43] VITALS: BP 121/70; PULSE 86; TEMP 98
[2024-03-31 09:26] LABS: BUN/Creat Ratio 25.43 Ratio (12.00-20.00); Blood Urea Nitrogen 17.8 mg/dL (9.0-27.0); Calcium 8.8 mg/dL (8.7-10.3); Carbon Dioxide 26.2 mmol/L (21.6-31.8); Chloride 104 mmol/L (96-109); Glucose 108 mg/dL (70-110); Potassium 4.4 mmol/L (3.5-5.5); Sodium 139 mmol/L (135-145)
--- NOTE | 2024-03-31 09:26 | P.DS ---
Providers Date of admission: 03/23/24 21:16 Attending physician: Romario Vivas MD Consults: 03/24/24 09:25 Consult Physician Routine Consulting Provider: Quinton Hawley Consult Reason/Comments: Right knee large joint effusion post fall Do you want consulting provider notified?: Yes 03/28/24 14:21 Consult Physician Routine Consulting Provider: Elyse Molina Consult Reason/Comments: UTI, multiple drug allergies Do you want consulting provider notified?: Already Contacted Primary care physician: [facility] Hospital Course: Final Diagnosis Traumatic fall with soft tissue head trauma on the right forehead Right knee pain with large joint effusion post fall, status post aspiration per orthopedics rupture of patellar tendon on the right, MRI reveiewed by orthopedics and felt not a complete rupture. Acute UTI, not present on admission, no sepsis. Bruising and pain to the left great toe post fall Diabetes Mellitus type 2 Hypertension currently normotensive holding lisinopril Gastroesophageal reflux disease TIA in 2013 with no residual Hx of brain bleed in 2023 post fall Anxiety/Depression Discharge Disposition Patient is stable for discharge to subacute rehabilitation center at [facility]. Patient to continue with knee brace and weightbearing as tolerated. Continue oral Macrobid on discharge for a total of 7 more days. Follow-up with infectious disease in 1 week. Continue with indwelling Thurston catheter and okay for a voiding trial on April 04. If patient continues with urinary retention then would recommend to follow urology as an outpatient basis and replace the Thurston catheter. Hospital Course This is an 89-year-old female with medical history significant for diabetes mellitus, hypertension, acid reflux, TIA with no residuals back in 2013. Patient also had a brain bleed in 2023 secondary to a fall where she hit her head. Patient is maintained on Plavix daily. She comes into the hospital she had a fall on Thursday where she was walking up steps misstepped fell hit her head into the wall she came to the ER to be evaluated she had a had cervical spine CT that showed no acute intracranial process but she did have some right frontal superficial soft tissue swelling and there is some obvious bruising noted on her forehead and she has bilateral black eyes. Patient was discharged home from the ER however she comes back with a second fall on Thursday where she fell going down steps and landed on her knees. Since then she has had significant pain in her right knee with some obvious soft tissue swelling. Knee x-ray reveals no acute fracture or dislocation of the right knee however there is moderate to severe tricompartment degenerative change and spurring is seen. Patient had a follow-up CT of the right knee which again confirms a large sized suprapatellar joint effusion and patient is at this time unable to bear weight secondary to the pain. Orthopedics was consulted for further evaluation and possible aspiration we did hold her Plavix today. Will work reveals a white blood cell count of 13.9, sodium 135, BUN of 20 creatinine 0.94 AST of 37. Hemodynamically she is stable. No fractures noted although there is significant swelling and patient reports she just had an aspiration of the knee which was sent for analysis. Approximately 27 cc taken. Cultures came back negative. Knee MRI reveals complete rupture of the patellar tendon. Patient scheduled to undergo surgical repair of this. Chest xray is negative for acute findings. EKG and Urinalysis ordered for preoperative clearance. Plavix has been on hold for sugical intervention. As part of preoperative work up, urinalysis was found to be significantly abnormal. Patient now reporting dysuria. Bladder was distended today and bladder scan did reveal greater than 900 mls in the urinary bladder. ID was consulted for antibiotic management as patient does have multiple drug allergies. Echocardiogram shows an EF 55-60%, mild to moderate mitral regurgitation and mild aortic regurgitation. Mild TR and mild pulmonary hypertension. Patient does have some systolic murmur. Periorbital bruising is improving. MRI was reviewed by orthopedics and felt patient does not need surgical intervention at this time recommending hinged kneed brace and patient can weight bear as tolerated. Patient will need subacute rehab on discharge. Urine culture comes back showing pansensitive E.Coli patient was transitioned to course of oral macrobid for discharge. Indwelling catheter to continue and can do a trial of void thursday at [facility]. Patient is not having any chest pain or shortness of breath at this time. She is tolerating diet and bowels are moving. Plavix has been resumed. She is cleared today for discharge to the rehab center. Please see medication reconciliation for a list of current medications. Thank you for allowing us to participate in the care of this patient. The impression and plan of care has been dictated by Ernestina Avilez, Nurse Practitioner as directed. Dr. Chris MD I have performed a history and physical examination and medical decision making of this patient, discussed the same with the dictator, and agree with the dictators assessment and plan as written, documented as a scribe. Based on total visit time, I have performed more than 50% of this visit. Patient Condition at Discharge: Fair Plan - Discharge Summary Discharge Rx Participant: No New Discharge Prescriptions: New Ibuprofen [Motrin] 400 mg PO Q6HR PRN tab PRN Reason: Mild Pain Or Fever > 100.5 Nitrofurantoin Monohyd/M-Cryst [Macrobid] 100 mg PO BID 7 Days #14 cap HYDROcodone/APAP 5-325MG [Leiter 5-325] 1 each PO Q4HR PRN #4 tab PRN Reason: Moderate Pain (Scale 4 To 6) Continue Metoprolol Succinate (ER) [Toprol XL] 25 mg PO DAILY Omeprazole [PriLOSEC] 20 mg PO DAILY Cholecalciferol [Vitamin D3 (25 Mcg = 1000 Iu)] 50 mcg PO DAILY Alendronate Sodium [Fosamax] 70 mg PO PERRIN Dulaglutide [Trulicity] 0.75 mg SQ PERRIN calcium polycarbophiL [Fibercon] 625 mg PO DAILY Magnesium Oxide [Mag-Ox] 400 mg PO DAILY sitaGLIPtin PHOS/metFORMIN HCL [Janumet 50-500 mg Tablet] 1 tab PO DAILY lisinopriL 2.5 mg PO DAILY Clopidogrel [Plavix] 75 mg PO DAILY Rosuvastatin [Crestor] 10 mg PO DAILY Citalopram Hydrobromide [CeleXA] 20 mg PO DAILY Discharge Medication List Metoprolol Succinate (ER) [Toprol XL] 25 mg PO DAILY 05/04/14 [History] Omeprazole [PriLOSEC] 20 mg PO DAILY 05/04/14 [History] Alendronate Sodium [Fosamax] 70 mg PO PERRIN 03/24/24 [History] Cholecalciferol [Vitamin D3 (25 Mcg = 1000 Iu)] 50 mcg PO DAILY 03/24/24 [History] Citalopram Hydrobromide [CeleXA] 20 mg PO DAILY 03/24/24 [History] Clopidogrel [Plavix] 75 mg PO DAILY 03/24/24 [History] Dulaglutide [Trulicity] 0.75 mg SQ PERRIN 03/24/24 [History] Magnesium Oxide [Mag-Ox] 400 mg PO DAILY 03/24/24 [History] Rosuvastatin [Crestor] 10 mg PO DAILY 03/24/24 [History] calcium polycarbophiL [Fibercon] 625 mg PO DAILY 03/24/24 [History] lisinopriL 2.5 mg PO DAILY 03/24/24 [History] sitaGLIPtin PHOS/metFORMIN HCL [Janumet 50-500 mg Tablet] 1 tab PO DAILY 03/24/24 [History] HYDROcodone/APAP 5-325MG [Leiter 5-325] 1 each PO Q4HR PRN #4 tab 03/30/24 [Rx] Ibuprofen [Motrin] 400 mg PO Q6HR PRN tab 03/30/24 [Rx] Nitrofurantoin Monohyd/M-Cryst [Macrobid] 100 mg PO BID 7 Days #14 cap 03/30/24 [Rx] Follow up Appointment(s)/Referral(s): Maninder Rivas MD [Primary Care Provider] - 1-2 days Elyse Molina MD [STAFF PHYSICIAN] - 1 Week Quinton Hawley MD [Medical Doctor] - 04/11/24 1:10 pm Ambulatory/Diagnostic Orders: Basic Metabolic Panel [LAB.AMB] Location: None Selected Complete Blood Count w/diff [LAB.AMB] Time Frame: 3 Days, Location: None Selected Activity/Diet/Wound Care/Special Instructions: Continue indwelling thurston cather and recommending voiding trial to be done on Thursday April 04, 2024. If patient fails the voiding trial wound recommend to replace the thurston catheter and follow up with urology in the office. Continue oral antibiotics with oral macrobid for the next 7 days. Follow up with Dr Molina in the office. Hinged knee brace and weight bearing as tolerated Follow up with Dr Hawley in the office Repeat blood work in 2 to 3 days Discharge Disposition: TRANSFER TO SNF/ECF
[2024-03-31 11:42] LABS: Glucose,Whole Blood 160 mg/dL (70-110)
--- NOTE | 2024-03-31 15:13 | P.PN ---
Subjective Progress Note Date: 03/30/24 Principal diagnosis: Reason for follow-up is UTI, multiple antibiotic allergies Patient is a 89-year-old female with a past medical history of again for diabetes mellitus and hypertension presented to the hospital after the patient did have a fall, patient did have a urinary retention urinary burning diagnosed with UTI with multiple antibiotic allergies prompting this consultation. On today's evaluation that is 03/30/2024,the patient denies any fever or any chills, patient is breathing comfortably on room air, the patient denies chest pain shortness of breath and no significant cough, patient denies abdominal pain, no nausea vomiting or diarrhea. Patient did have a white count of 6.79, creatinine 0.66 urine grew E. coli that is a sensitive pathogen Objective - Vital Signs Vital signs: Vital Signs Temp 97.9 F 03/30/24 07:21 Pulse 68 03/30/24 07:21 Resp 16 03/30/24 07:21 BP 132/74 03/30/24 07:21 Pulse Ox 94 L 03/30/24 07:21 FiO2 Intake & Output 03/29/24 03/30/24 03/30/24 18:59 06:59 18:59 Intake Total 200 360 Output Total 1402 1000 Balance -1202 -640 Intake: Oral 200 Blood Product 360 Output: Urine 1400 1000 Stool 2 Other: Voiding Method Indwelling Catheter Indwelling Catheter Indwelling Catheter External Catheter # Voids 450 - Exam GENERAL DESCRIPTION: An elderly female lying in bed in no distress RESPIRATORY SYSTEM: Unlabored breathing , decreased breath sounds at bases HEART: S1 S2 regular rate and rhythm , ABDOMEN: Soft , no tenderness EXTREMITIES: No edema feet - Labs CBC & Chem 7: 03/30/24 07:03 03/31/24 03:49 Labs: Abnormal Lab Results - Last 24 Hours (Table) 03/29/24 03/29/24 03/30/24 Range/Units 17:00 21:45 04:42 RBC (4.10-5.20) X 10*6/uL Hgb (12.0-15.0) g/dL Hct (37.2-46.3) % Immature Gran # (0.00-0.04) X 10*3/uL Lymphocytes # (0.90-5.00) X 10*3/uL Sodium 133 L (137-145) mmol/L BUN 22 H (7-17) mg/dL Glucose 136 H (74-99) mg/dL POC Glucose (mg/dL) 182 H 172 H (70-110) mg/dL 03/30/24 03/30/24 03/30/24 Range/Units 06:23 07:03 11:55 RBC 3.33 L (4.10-5.20) X 10*6/uL Hgb 9.8 L (12.0-15.0) g/dL Hct 30.4 L (37.2-46.3) % Immature Gran # 0.06 H (0.00-0.04) X 10*3/uL Lymphocytes # 0.75 L (0.90-5.00) X 10*3/uL Sodium (137-145) mmol/L BUN (7-17) mg/dL Glucose (74-99) mg/dL POC Glucose (mg/dL) 132 H 207 H (70-110) mg/dL Microbiology - Last 24 Hours (Table) 03/28/24 12:35 Urine Culture - Final Urine,Clean Catch Escherichia coli Assessment and Plan (1) UTI (urinary tract infection) Status: Acute Code(s): N39.0 - URINARY TRACT INFECTION, SITE NOT SPECIFIED SNOMED Code(s): 95573361 (2) Allergy to multiple antibiotics Status: Acute Code(s): Z88.1 - ALLERGY STATUS TO OTHER ANTIBIOTIC AGENTS SNOMED Code(s): 286289655 Plan: 1patient with initial presentation to hospital with a fall and has been diagnosed with a injury to the right knee area and was considered for surgery which has been put on hold 2patient also complaining of significant burning of urine suprapubic pain and also have urine retention significant positive UA concerning for symptomatic UTI 3patient with multiple antibiotic ALLERGIES that would limit the number of antibiotic safe to use 4patient urine is growing E. coli that is a sensitive pathogen we will dis continue Azactam start the patient on Macrobid 100 mg twice daily and see clinical response Dictation was produced using [employer] software. please excuse any grammatical, word or spelling errors. Time with Patient: Less than 30
--- NOTE | 2024-03-31 15:13 | P.PN ---
Subjective Progress Note Date: 03/31/24 Principal diagnosis: Reason for follow-up is UTI, multiple antibiotic allergies Patient is a 89-year-old female with a past medical history of again for diabetes mellitus and hypertension presented to the hospital after the patient did have a fall, patient did have a urinary retention urinary burning diagnosed with UTI with multiple antibiotic allergies prompting this consultation. On today's evaluation that is 03/31/2024,the patient remains to be afebrile, patient is on room air not requiring supplemental oxygen and denies any shortness of breath no chest pain or cough.Patient denies having any nausea or vomiting, no abdominal pain and no diarrhea has been reported. Patient did have a creatinine 0.7 no CBC was done today Objective - Vital Signs Vital signs: Vital Signs Temp 98.0 F 03/31/24 06:53 Pulse 86 03/31/24 06:53 Resp 18 03/31/24 06:53 BP 121/70 03/31/24 06:53 Pulse Ox 95 03/31/24 06:53 FiO2 Intake & Output 03/30/24 03/31/24 03/31/24 18:59 06:59 18:59 Intake Total 480 Output Total 325 1500 Balance -325 -1020 Weight 63.503 kg Intake: Oral 480 Output: Urine 325 1500 Other: Voiding Method Indwelling Catheter Indwelling Catheter Indwelling Catheter # Voids 650 # Bowel Movements 1 - Exam GENERAL DESCRIPTION: An elderly female lying in bed in no distress RESPIRATORY SYSTEM: Unlabored breathing , decreased breath sounds at bases HEART: S1 S2 regular rate and rhythm , ABDOMEN: Soft , no tenderness EXTREMITIES: No edema feet - Labs CBC & Chem 7: 03/30/24 07:03 03/31/24 03:49 Labs: Abnormal Lab Results - Last 24 Hours (Table) 03/30/24 03/30/24 03/30/24 Range/Units 11:55 16:46 20:28 BUN/Creatinine Ratio (12.00-20.00) Ratio POC Glucose (mg/dL) 207 H 111 H 190 H (70-110) mg/dL 03/31/24 03/31/24 Range/Units 03:49 06:26 BUN/Creatinine Ratio 25.43 H (12.00-20.00) Ratio POC Glucose (mg/dL) 120 H (70-110) mg/dL Microbiology - Last 24 Hours (Table) 03/29/24 10:10 Blood Culture - Preliminary Blood 03/28/24 12:35 Urine Culture - Final Urine,Clean Catch Escherichia coli Assessment and Plan (1) UTI (urinary tract infection) Status: Acute Code(s): N39.0 - URINARY TRACT INFECTION, SITE NOT SPECIFIED SNOMED Code(s): 97217893 (2) Allergy to multiple antibiotics Status: Acute Code(s): Z88.1 - ALLERGY STATUS TO OTHER ANTIBIOTIC AGENTS SNOMED Code(s): 092805401 Plan: 1patient with initial presentation to hospital with a fall and has been diagnosed with a injury to the right knee area and was considered for surgery which has been put on hold 2patient also complaining of significant burning of urine suprapubic pain and also have urine retention significant positive UA concerning for symptomatic UTI 3patient with multiple antibiotic ALLERGIES that would limit the number of antibiotic safe to use 4patient urine is growing E. coli that is a sensitive pathogen she is currently on Macrobid 100 mg twice daily to continue for another 7 days to finish her course of therapy Dictation was produced using [employer] dictation software. please excuse any grammatical, word or spelling errors. Time with Patient: Less than 30
== END 2024-03-31 14:52 | DRG 537 ==
LOC: EC 19:57 → 4SSUR 21:15 → INTOOBSV 21:15 → OBSVTOIN 21:16 → 4SSUR 22:13
PROVIDERS: ADMIT Internal Medicine; ATTEND Internal Medicine
PROC: 0S9C3ZZ Drainage of Right Knee Joint, Percutaneous Approach (ICD-10-PCS; principal; 2024-03-24)
DX: S76.111A Strain of right quadriceps muscle, fascia and tendon, initial encounter (principal); N39.0 Urinary tract infection, site not specified; I27.20 Pulmonary hypertension, unspecified; S06.2XAA Diffuse traumatic brain injury with loss of consciousness status unknown, initial encounter; E11.9 Type 2 diabetes mellitus without complications; E78.5 Hyperlipidemia, unspecified; B96.20 Unspecified Escherichia coli [E. coli] as the cause of diseases classified elsewhere; I10 Essential (primary) hypertension; F32.A Depression, unspecified; I08.3 Combined rheumatic disorders of mitral, aortic and tricuspid valves; M79.675 Pain in left toe(s); S00.10XA Contusion of unspecified eyelid and periocular area, initial encounter; R29.6 Repeated falls; M17.11 Unilateral primary osteoarthritis, right knee; R33.8 Other retention of urine; R00.1 Bradycardia, unspecified; W10.9XXA Fall (on) (from) unspecified stairs and steps, initial encounter; Y92.009 Unspecified place in unspecified non-institutional (private) residence as the place of occurrence of the external cause; Y93.01 Activity, walking, marching and hiking; F41.9 Anxiety disorder, unspecified; K21.9 Gastro-esophageal reflux disease without esophagitis; M41.9 Scoliosis, unspecified; M43.16 Spondylolisthesis, lumbar region; Z79.02 Long term (current) use of antithrombotics/antiplatelets; Z79.83 Long term (current) use of bisphosphonates; Z79.84 Long term (current) use of oral hypoglycemic drugs; Z79.899 Other long term (current) drug therapy; Z86.73 Personal history of transient ischemic attack (TIA), and cerebral infarction without residual deficits; Z88.1 Allergy status to other antibiotic agents; Z90.710 Acquired absence of both cervix and uterus; Z88.8 Allergy status to other drugs, medicaments and biological substances; Z90.49 Acquired absence of other specified parts of digestive tract; Z88.0 Allergy status to penicillin
CPT/HCPCS: 71046; 72100; 80048; 80053; 81001; 83036; 83735; 85025; 87040; 87070; 87077; 87086; 87186; 87205; 89050; 89060; 93306; 99285